=== PATIENT | male | born 1960 | race Caucasian/White ===

== ENCOUNTER 2020-07-08 21:35 | Inpatient (IN) ==
[2020-07-08] MEDS ORDERED: dilTIAZem HCl 5 MG/ML 5 ML VIAL IV ONE (21:45)
[2020-07-08] MEDS ORDERED: dilTIAZem HCl 5 MG/ML 5 ML VIAL IV STA (21:51)
[2020-07-08] MEDS ORDERED: STAT IV Infusion **Titration per Protocol STA (21:51)
[2020-07-08 21:59] LABS: Basophils # (auto) 0.03 K/uL (0-0.2); Basophils % (auto) 0.4 %; Eosinophils # (auto) 0.18 K/uL (0-0.5); Eosinophils % (auto) 2.1 %; Hematocrit (blood only) 52.1 % (42-52); Hemoglobin 18.7 g/dL (14.0-18.0); Immature Granulocytes # (auto) 0.02 K/uL (0.00-0.02); Immature Granulocytes % (auto) 0.2 %; Lymphocytes # (auto) 2.09 K/uL (1.2-3.4); Lymphocytes % (auto) 24.6 %; Mean Corpuscular Hemoglobin 30.6 pg (25-34); Mean Corpuscular Hgb Conc 35.9 g/dL (32-36); Mean Corpuscular Volume 85.3 fL (80-100); Mean Platelet Volume 9.3 fL (7.4-10.4); Monocytes # (auto) 0.86 K/uL (0.11-0.59); Monocytes % (auto) 10.1 %; Neutrophils # (auto) 5.31 K/uL (1.4-6.5); Neutrophils % (auto) 62.6 %; Platelet Count 200 K/uL (130-400); RDW Coefficient of Variation 12.9 % (11.5-14.5); RDW Standard Deviation 39.7 fL (36.4-46.3); Red Blood Count 6.11 M/uL (4.7-6.1); White Blood Count 8.49 K/uL (4.8-10.8)
[2020-07-08] MEDS ORDERED: dilTIAZem HCL 125 MG in DEXTROSE 5% 100 ML IV SCH (22:00)
--- NOTE | 2020-07-08 22:18 | Emergency Department Note ---
Impression & Plan Palpitations, Atrial fibrillation with rapid ventricular response ED Provider Note Provider: Aden Rai MD DATE OF SERVICE: 07/08/2020 CHIEF COMPLAINT: Palpitations HISTORY OF PRESENT ILLNESS: Patient is a 59-year-old gentleman without significant past medical history presenting here today via ambulance from work. Patient states around 8:00 he had onset of some palpitation type symptoms. Denies any chest pain or shortness of breath. Denies any fever or recent illness. Patient states due to possible family exposure negative Covid test 2 weeks ago. Patient denies abdominal pain or nausea. EMS noted he is in rapid atrial fibrillation. Patient states several years ago they thought he may have transiently been in A. fib but were several ulcers without confirmation. Not on current prescription medications. Recently moved here from [facility] and does not currently have a PCP. 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 REVIEW OF SYSTEMS: A total of 10 review of systems was obtained and negative except as stated above in the HPI. PAST MEDICAL HISTORY: As noted above MEDICATIONS: Reviewed home medications SOCIAL HISTORY: Works for [employer], PHYSICAL EXAM: GENERAL: alert and oriented in no acute distress on stretcher Head: normocephalic and atraumatic EYES: No injection, discharge or icterus. NECK: Trachea midline. Supple. LUNGS: Airway patent. No retractions. Breath sounds clear with good air entry bilaterally. HEART: Irregular tachycardic rate and rhythm. No chest wall tenderness ABDOMEN: Soft and non-tender, without guarding or rebound. SKIN: Acyanotic, warm, dry, without rashes EXTREMITIES: Without swelling, tenderness or deformity NEUROLOGICAL: No focal deficits. No aphasia. No facial droop or slurred speech. Ambulatory. EK beats from atrial fibrillation with rapid ventricular response. No acute ST segment elevation or depression noted. QTc within normal limits, QRS within normal limits. CONTINUOUS CARDIAC MONITORING: was ordered and showed a heart rate of 160s to 100s bpm in atrial fibrillation with rapid ventricular response 1 view chest x-ray per my interpretation without evidence of acute pneumonia or pneumothorax. No significant cardiomegaly or pulmonary edema noted. Patient's laboratory studies and imaging reviewed. Differential includes Premature contractions, electrolyte abnormality, cardiac dysrhythmia, thyroid dysfunction, pulmonary embolism, infection, gastrointestinal, as well as other pathologies. IMPRESSION/MEDICAL DECISION MAKING: Patient presents onset of palpitations. He on new onset atrial fibrillation with rapid ventricular response. Not unstable. Hypertensive. Given a 20 mg IV bolus of Cardizem and started on diltiazem drip. Patient had some improvement of his heart rate into the 110s and 120s from 160s. No significant leukocytosis with a mildly elevated hemoglobin 18.7 is noted. Electrolytes and thyroid studies were sent as well. Chest x-ray is significant finding of fluid overload. No severe electrolyte abnormalities or thyroid dysfunction. Troponin is undetectable. EKG shows rapid A. fib without significant ischemic changes. Patient on high-dose Cardizem drip still with suboptimal rate control. Given this discussed with the patient and the hospitalist for further care here at the hospital. Patient wished for me to update his via phone which was done. Again patient resting comfortably in bed without significant complaint or hypotension. Will defer anticoagulation to hospitalist team, patient with a 0 [id number] 2 score. DIAGNOSIS: New onset atrial fibrillation with rapid ventricular response, palpitations DISPOSITION: Hospitalist will evaluate Patient was agreeable with this plan. Critical Care I have personally spent 34 minutes of critical care time in the direct management of this patient. This includes bedside care, interpretation of diagnostic studies, and testing, discussion with consultants, patient, and family members, and other required patient management activities. These 34 minutes is in excess of all separately billable procedures. Past Med/Surg History Social History Smoking Status: Never smoker Preferred Language: Japanese Feels Safe at Home: Yes Allergies Allergies Allergy/AdvReac Type Severity Reaction Status Date / Time cat dander Allergy Unknown POSITIVE Verified 07/08/20 22:17 ALLERGY TEST Penicillins Allergy Unknown HAPPENED Verified 07/08/20 22:17 A CHILD ragweed pollen Allergy Unknown POSITIVE Verified 07/08/20 22:17 ALLERGY TEST Home Meds Home Medications Medication Instructions Recorded Confirmed ascorbic acid (vitamin C) [Vitamin 0 mg PO DAILY 07/08/20 07/08/20 C] cholecalciferol (vitamin D3) 25 mcg PO DAILY 07/08/20 07/08/20 [Vitamin D3] diphenhydramine HCl [ZzzQuil] 25 mg PO HS PRN 07/08/20 07/08/20 multivitamin 1 tab PO DAILY 07/08/20 07/08/20 Results & Data (ED) Vital Signs Vital Signs - 24 hr 07/08/20 21:40 07/08/20 21:48 07/08/20 21:50 Temperature 37.3 C Temperature Source Oral Pulse Rate 165 H 122 H 132 H Respiratory Rate 20 18 18 Respiratory Effort / Characteristics Non-Labored Spontaneous Respiratory Depth Normal Blood Pressure 185/109 H 139/91 122/66 Blood Pressure Mean 134 107 84 Pulse Oximetry 98 98 96 Oxygen Delivery Method Room Air Sepsis New/Unexplained Change in Mental Status N/A Sepsis Action Taken by Nursing No Action Required 07/08/20 22:00 07/08/20 22:05 07/08/20 22:10 Temperature Temperature Source Pulse Rate 107 H 112 H 120 H Respiratory Rate 18 20 20 Respiratory Effort / Characteristics Respiratory Depth Blood Pressure 148/92 H 136/99 150/75 H Blood Pressure Mean 110 111 100 Pulse Oximetry 94 93 94 Oxygen Delivery Method Sepsis New/Unexplained Change in Mental Status Sepsis Action Taken by Nursing 07/08/20 22:16 07/08/20 22:25 07/08/20 22:30 Temperature Temperature Source Pulse Rate 138 H 114 H 133 H Respiratory Rate 20 20 18 Respiratory Effort / Characteristics Respiratory Depth Blood Pressure 161/86 H 132/85 148/113 H Blood Pressure Mean 111 100 124 Pulse Oximetry 95 95 96 Oxygen Delivery Method Sepsis New/Unexplained Change in Mental Status Sepsis Action Taken by Nursing 07/08/20 22:35 07/08/20 22:40 07/08/20 22:45 Temperature Temperature Source Pulse Rate 116 H 125 H 136 H Respiratory Rate 20 20 16 Respiratory Effort / Characteristics Respiratory Depth Blood Pressure 115/90 125/68 125/76 Blood Pressure Mean 98 87 92 Pulse Oximetry 94 96 95 Oxygen Delivery Method Sepsis New/Unexplained Change in Mental Status Sepsis Action Taken by Nursing 07/08/20 22:50 Temperature Temperature Source Pulse Rate 128 H Respiratory Rate 16 Respiratory Effort / Characteristics Respiratory Depth Blood Pressure 144/95 H Blood Pressure Mean 111 Pulse Oximetry 94 Oxygen Delivery Method Sepsis New/Unexplained Change in Mental Status Sepsis Action Taken by Nursing Laboratory Data Result diagrams: 07/08/20 21:31 07/08/20 21:31 Lab Results 07/08/20 07/08/20 07/08/20 Range/Units 21:31 21:31 22:35 WBC 8.49 (4.8-10.8) K/uL RBC 6.11 H (4.7-6.1) M/uL Hgb 18.7 H (14.0-18.0) g/dL Hct 52.1 H (42-52) % MCV 85.3 (80-100) fL MCH 30.6 (25-34) pg MCHC 35.9 (32-36) g/dL RDW Std Deviation 39.7 (36.4-46.3) fL RDW Coeff of Hannah 12.9 (11.5-14.5) % Plt Count 200 (130-400) K/uL MPV 9.3 (7.4-10.4) fL Immature Gran % (Auto) 0.2 % Neut % (Auto) 62.6 % Lymph % (Auto) 24.6 % [place] % (Auto) 10.1 % Eos % (Auto) 2.1 % Baso % (Auto) 0.4 % Neut # (Auto) 5.31 (1.4-6.5) K/uL Lymph # (Auto) 2.09 (1.2-3.4) K/uL [place] # (Auto) 0.86 H (0.11-0.59) K/uL Eos # (Auto) 0.18 (0-0.5) K/uL Baso # (Auto) 0.03 (0-0.2) K/uL Immature Gran # (Auto) 0.02 (0.00-0.02) K/uL Sodium 139 (136-145) mmol/L Potassium 3.9 (3.5-5.1) mmol/L Chloride 105 (98-107) mmol/L Carbon Dioxide 27 (21-32) mmol/L Anion Gap 7.0 (3-11) BUN 17 (7-18) mg/dl Creatinine 1.09 (0.6-1.4) mg/dl Est Cr Clr Drug Dosing 95.4 ml/min Est GFR ( Amer) 85.7 Est GFR (Non-Af Amer) 73.9 BUN/Creatinine Ratio 15.8 (10-20) Glucose 134 H (70-99) mg/dl Calcium 9.8 (8.5-10.1) mg/dl Magnesium 2.3 (1.8-2.4) mg/dl Total Bilirubin 0.9 (0.2-1) mg/dl AST 24 (15-37) U/L ALT 38 (12-78) U/L Alkaline Phosphatase 84 (45-117) U/L Troponin I < 0.015 (0-0.045) ng/ml Total Protein 8.6 H (6.4-8.2) gm/dl Albumin 4.8 (3.4-5.0) gm/dl Globulin 3.8 (2.5-4.0) gm/dl Albumin/Globulin Ratio 1.3 (0.9-2) TSH 2.090 (0.300-4.500) uIu/ml COVID-19 Eval [facility] SARS-CoV-2, RNA, NAAT (NEGATIVE) 07/08/20 Range/Units 22:35 WBC (4.8-10.8) K/uL RBC (4.7-6.1) M/uL Hgb (14.0-18.0) g/dL Hct (42-52) % MCV (80-100) fL MCH (25-34) pg MCHC (32-36) g/dL RDW Std Deviation (36.4-46.3) fL RDW Coeff of Hannah (11.5-14.5) % Plt Count (130-400) K/uL MPV (7.4-10.4) fL Immature Gran % (Auto) % Neut % (Auto) % Lymph % (Auto) % [place] % (Auto) % Eos % (Auto) % Baso % (Auto) % Neut # (Auto) (1.4-6.5) K/uL Lymph # (Auto) (1.2-3.4) K/uL [place] # (Auto) (0.11-0.59) K/uL Eos # (Auto) (0-0.5) K/uL Baso # (Auto) (0-0.2) K/uL Immature Gran # (Auto) (0.00-0.02) K/uL Sodium (136-145) mmol/L Potassium (3.5-5.1) mmol/L Chloride (98-107) mmol/L Carbon Dioxide (21-32) mmol/L Anion Gap (3-11) BUN (7-18) mg/dl Creatinine (0.6-1.4) mg/dl Est Cr Clr Drug Dosing ml/min Est GFR ( Amer) Est GFR (Non-Af Amer) BUN/Creatinine Ratio (10-20) Glucose (70-99) mg/dl Calcium (8.5-10.1) mg/dl Magnesium (1.8-2.4) mg/dl Total Bilirubin (0.2-1) mg/dl AST (15-37) U/L ALT (12-78) U/L Alkaline Phosphatase (45-117) U/L Troponin I (0-0.045) ng/ml Total Protein (6.4-8.2) gm/dl Albumin (3.4-5.0) gm/dl Globulin (2.5-4.0) gm/dl Albumin/Globulin Ratio (0.9-2) TSH (0.300-4.500) uIu/ml COVID-19 Eval Order SARS-CoV-2, RNA, NAAT NEGATIVE (NEGATIVE) Administered Medications Diltiazem HCl 125 mg/ Dextrose 125 mls @ 5 mls/hr IV .Q24H [facility]; Protocol Stop: 08/07/20 21:59 Last Titration: 07/08/20 22:32 Dose: 15 mg/hr, 15 mls/hr Documented by: [id number] Cosigned by: [id number] Admin: 07/08/20 21:59 Dose: 10 mg/hr, 10 mls/hr Documented by: [id number] Cosigned by: [id number] Discontinued Medications Diltiazem HCl (Diltiazem Hcl 5 Mg/Ml 5 Ml Vial) Confirm Administered Dose 25 mg IV .STK-MED ONE Stop: 07/08/20 21:46 Last Increment: 07/08/20 21:46 Dose: 20 mg Documented by: [id number] Cosigned by: [id number] Diltiazem HCl (Diltiazem Hcl 5 Mg/Ml 5 Ml Vial) 20 mg IV NOW STA Stop: 07/08/20 21:52 Last Admin: 07/08/20 21:55 Dose: Not Given Documented by: [id number] Miscellaneous (Stat Iv Infusion Titration Per Protocol) 1 ea N/A NOW STA Stop: 07/08/20 21:52 Last Admin: 07/08/20 22:00 Dose: Not Given Documented by: [id number] Discharge Plan Visit Data Chief Complaint: Tachycardia Stated Complaint: TACHYCARDIA ED Provider: Aden Rai Discharge Problem: Palpitations, Atrial fibrillation with rapid ventricular response Patient Disposition: Being Evaluated by Hospitalist Condition: Good Prescriptions Prescriptions: No Action multivitamin Tablet 1 tab PO DAILY RF: 0 ascorbic acid (vitamin C) [Vitamin C] 500 mg Tablet 0 mg PO DAILY RF: 0 diphenhydramine HCl [ZzzQuil] 25 mg Capsule 25 mg PO HS PRN (Reason: Sleep) RF: 0 cholecalciferol (vitamin D3) [Vitamin D3] 25 mcg (1,000 unit) Capsule 25 mcg PO DAILY RF: 0 Referrals Referrals: PCP,NO [Primary Care Provider] -
[2020-07-08 22:41] LABS: Alanine Aminotransferase 38 U/L (12-78); Albumin Globulin Ratio 1.3 (0.9-2); Albumin Level 4.8 gm/dl (3.4-5.0); Alkaline Phosphatase 84 U/L (45-117); BUN Creatinine Ratio 15.8 (10-20); Bilirubin,Total 0.9 mg/dl (0.2-1); Blood Urea Nitrogen 17 mg/dl (7-18); Calcium 9.8 mg/dl (8.5-10.1); Carbon Dioxide 27 mmol/L (21-32); Chloride 105 mmol/L (98-107); Creatinine Clr Calc Pharmacy 95.4 ml/min; Est GFR (African American) 85.7; Est GFR (Non-African American) 73.9; Globulin 3.8 gm/dl (2.5-4.0); Glucose 134 mg/dl (70-99); Sodium 139 mmol/L (136-145); Total Protein 8.6 gm/dl (6.4-8.2); Troponin I < 0.015 ng/ml (0-0.045)
[2020-07-08 22:57] LABS: Aspartate Aminotransferase 24 U/L (15-37); Magnesium 2.3 mg/dl (1.8-2.4); Potassium 3.9 mmol/L (3.5-5.1)
[2020-07-08] MEDS ORDERED: dilTIAZem HCL 30 MG TAB PO ONE (23:49)
[2020-07-08] MEDS ORDERED: dilTIAZem HCl 5 MG/ML 5 ML VIAL IV PRN (23:51)
--- NOTE | 2020-07-09 00:14 | History & Physical Report ---
Date of Service July 09, 2020 Assessment & Plan (1) Atrial fibrillation with rapid ventricular response: 59-year-old male with no past medical history admitted for new onset A. fib with RVR and noted to be mildly hypertensive and mildly hyperglycemic. AFib with RVR: - In ER received 20 mg IV Cardizem before being placed on Cardizem drip. - Patient's heart rate now 100-120, no complaints of chest pain, shortness of breath, dizziness or headache. - Cardizem 30mg PO now, then d/c cardizem drip. IV Cardizem 10mg q4h prn HR >110. - Heparin gtt started. - Echo AM. - ChadsVasc of 1, might not require anticoagulation long-term. - Tele for cardiac monitoring. - No signs of OR, troponin normal, no ST elevation. HTN: - On admission with mild elevation in blood pressure to 140s/90s. - BP now normotensive after receiving Cardizem. Hyperglycemia: - BSG 134 on admission labs, non-fasting. - A1c with a.m. labs. Polycythemia: - Noted on admission labwork. - Without history of myeloproliferative disorder. - Repeat CBC AM. - Does not appear to be secondary to hemoconcentration. - No findings suggestive of polycythemia vera. CODE STATUS: Full code FENGI: N.p.o. for Echo in a.m, then regular diet DVT PPx: Heparin GTT Dispo: Telemetry for continuous cardiac monitoring, Cardizem as needed HR > 110 (2) HTN (hypertension): (3) Hyperglycemia: History of Present Illness Chief Complaint: Palpitations Primary Care Provider: NO PCP 59-year-old male with no significant past medical history presented via EMS for heart palpitations. Reports that he works for [employer], and has been putting in a lot of extra hours. While working he started to have heart palpitations, without associated chest pain, shortness of breath, lightheadedness. After did not resolve spontaneously EMS was called and patient was transported to ER. No recent illnesses. Mother does have a history of A. fib that was diagnosed in her 70s. In ER patient was found to be tachycardic to 165, EKG showed A. fib with RVR. Lab work showed normal troponin, hemoglobin 18.7, no electrolyte abnormalities, mildly elevated glucose to 134 normal TSH, Covid testing negative. At time of my interview patient is without palpitations, no headache, dizziness, chest pain, shortness of breath, abdominal pain, nausea or vomiting Allergies Allergy/AdvReac Type Severity Reaction Status Date / Time cat dander Allergy Unknown POSITIVE Verified 07/08/20 22:17 ALLERGY TEST Penicillins Allergy Unknown HAPPENED Verified 07/08/20 22:17 A CHILD ragweed pollen Allergy Unknown POSITIVE Verified 07/08/20 22:17 ALLERGY TEST Home Medications Medication Instructions Recorded Confirmed Type ascorbic acid (vitamin C) [Vitamin 0 mg PO DAILY 07/08/20 07/08/20 History C] cholecalciferol (vitamin D3) 25 mcg PO DAILY 07/08/20 07/08/20 History [Vitamin D3] diphenhydramine HCl [ZzzQuil] 25 mg PO HS PRN 07/08/20 07/08/20 History multivitamin 1 tab PO DAILY 07/08/20 07/08/20 History diltiazem HCl 120 mg PO QAM #90 cap 07/09/20 Rx Past Med/Surg History Family History (Updated 07/09/20 @ 00:53 by Janee Boggs DO) Mother Atrial fibrillation Social History Smoking Status: Never smoker Hx Alcohol Use: Yes Hx Substance Use: No Preferred Language: Bahamian Beliefs That Will Affect Care: None Current Living Situation: Family Other Information That Helps Us Care for You: No Feels Safe at Home: Yes Safety Concerns: Feels Safe At This Time Assistive Devices: None Review of Systems Review of Systems: All systems reviewed & are unremarkable except as noted in HPI & below Constitutional: no fever, no chills and no malaise Respiratory: no cough and no dyspnea Cardiovascular: no chest pain, no palpitations and no edema Gastrointestinal: no abdominal pain, no constipation and no diarrhea/loose stools Physical Exam Constitutional: WD/WN, vitals as above Eyes: PERRL, conjunctivae normal, anicteric sclerae ENMT: external ear and nose normal, oropharynx normal Neck: normal visual inspection Respiratory: normal respiratory effort, lungs clear to auscultation Cardiovascular: Rate/Rhythm: + tachycardic and + irregularly irregular Gastrointestinal (Abdomen): normal bowel sounds, soft, nontender, no hepatosplenomegaly Musculoskeletal: no cyanosis or clubbing, extremities motor strength 5/5 Skin: no rashes, warm and dry Neurologic: AAOx3, normal speech. PERRLA, EOMI, no nystagmus. Normal visual acuity bilaterally. Bilateral UE, LE, and face without sensory or motor deficits. DTRs normal. II- XII intact bilaterally. No pronator drift. No tremor. No ataxia. Psychiatric: A+Ox3, euthymic affect Results & Data Results & Data ([facility]) Vital Signs (Past 12 Hours) Vital Signs Temp Pulse Resp BP Pulse Ox 07/08/20 23:50 119 H 17 141/84 H 96 07/08/20 23:35 110 H 18 125/76 97 07/08/20 23:25 117 H 15 110/69 94 07/08/20 23:15 109 H 20 114/65 94 07/08/20 23:05 122 H 20 124/75 95 07/08/20 23:00 117 H 16 129/76 95 07/08/20 22:55 101 H 18 108/81 96 07/08/20 22:50 128 H 16 144/95 H 94 07/08/20 22:45 136 H 16 125/76 95 07/08/20 22:40 125 H 20 125/68 96 07/08/20 22:35 116 H 20 115/90 94 07/08/20 22:30 133 H 18 148/113 H 96 07/08/20 22:25 114 H 20 132/85 95 07/08/20 22:16 138 H 20 161/86 H 95 07/08/20 22:10 120 H 20 150/75 H 94 07/08/20 22:05 112 H 20 136/99 93 07/08/20 22:00 107 H 18 148/92 H 94 07/08/20 21:50 132 H 18 122/66 96 07/08/20 21:48 122 H 18 139/91 98 07/08/20 21:40 37.3 C 165 H 20 185/109 H 98 Code Status & VTE Plan VTE Prophylaxis Plan VTE Prophylaxis will be ordered: Yes Supervising Physician Co-Signing Physician Notes Attending addendum: I have physically seen this patient, have supervised the medical residents activities, and agree with the H&P unless as otherwise noted. Assessment and Plan: Atrial fibrillation with rapid ventricular response/hypertension- The patient will be admitted to telemetry for serial cardiac enzymes, serial EKG's, cardiac rhythm monitoring and a 2-D echocardiogram with Dopplers. New onset Given Cardizem 30 mg p.o. now, then stopping Cardizem drip in 1 hour, and will continue Cardizem 30 mg p.o. every 6 hours. Plan for conversion to Cardizem CD in a.m. Consult cardiology Hyperglycemia- Blood sugar 134 upon admission Check hemoglobin A1c Remaining orders and notations as noted Resident Activity Tracking Resident Involvement: Resident Care Provided Care Provided: Adult [facility] Medicine
[2020-07-09] MEDS ORDERED: ACETAMINOPHEN 325 MG TAB PO PRN (01:13)
[2020-07-09] MEDS ORDERED: HEPARIN SODIUM/DEXTROSE 25,000 UNITS/500 ML BAG IV SCH (01:13)
[2020-07-09] MEDS ORDERED: Heparin IV Standard *NO* Bolus IV SCH (01:13)
[2020-07-09] MEDS ORDERED: ONDANSETRON INJ 2 MG/ML 2 ML VIAL IV PRN (01:13)
[2020-07-09] MEDS ORDERED: POLYETHYLENE (MIRALAX) 17 GM PACK PO PRN (01:13)
[2020-07-09 02:23] LABS: Partial Thromboplastin Time 28.7 Seconds (21.0-31.0); Prothrombin Time 10.3 Seconds (9.0-12.0)
--- NOTE | 2020-07-09 07:05 | XRay Report ---
XR chest 1V portable CLINICAL HISTORY: palpitations COMPARISON STUDY: No previous studies for comparison. FINDINGS: Lung volumes are normal. Lungs are clear. There is no pneumothorax or pleural effusion. Car diac size is normal. Mediastinal contours are normal. There is no evidence for pulmonary edema. IMPRESSION: No acute cardiopulmonary findings. ACT 112: Negative or not required by law. Electronically signed by: Kar Bee M.D. 07/09/2020 7:04 AM
[2020-07-09 08:19] LABS: Basophils # (auto) 0.02 K/uL (0-0.2); Basophils % (auto) 0.3 %; Eosinophils % (auto) 1.5 %; Hematocrit (blood only) 45.6 % (42-52); Hemoglobin 16.4 g/dL (14.0-18.0); Immature Granulocytes # (auto) 0.01 K/uL (0.00-0.02); Immature Granulocytes % (auto) 0.1 %; Lymphocytes # (auto) 1.08 K/uL (1.2-3.4); Lymphocytes % (auto) 15.8 %; Mean Corpuscular Hemoglobin 30.3 pg (25-34); Mean Corpuscular Volume 84.3 fL (80-100); Monocytes # (auto) 0.62 K/uL (0.11-0.59); Monocytes % (auto) 9.1 %; Neutrophils # (auto) 5.01 K/uL (1.4-6.5); Neutrophils % (auto) 73.2 %; Platelet Count 187 K/uL (130-400); RDW Coefficient of Variation 13.1 % (11.5-14.5); RDW Standard Deviation 39.8 fL (36.4-46.3); Red Blood Count 5.41 M/uL (4.7-6.1); White Blood Count 6.84 K/uL (4.8-10.8)
[2020-07-09 08:38] LABS: Partial Thromboplastin Ratio 1.9
[2020-07-09 08:41] LABS: Partial Thromboplastin Time 53.8 Seconds (21.0-31.0)
[2020-07-09 08:45] LABS: BUN Creatinine Ratio 19.9 (10-20); Calcium 9.2 mg/dl (8.5-10.1); Creatinine Clr Calc Pharmacy 103.7 ml/min; Est GFR (African American) 97.4; Est GFR (Non-African American) 84.1; Potassium 3.9 mmol/L (3.5-5.1)
[2020-07-09] MEDS ORDERED: MULTIVITAMIN TAB PO SCH (09:00)
[2020-07-09 09:10] LABS: Chol HDL Ratio 4; Cholesterol 161 mg/dl (0-200); HDL Cholesterol 44 mg/dl; LDL Cholesterol Calculated 95 mg/dl; Triglycerides 109 mg/dl (0-150); VLDL Cholesterol 22 mg/dl
[2020-07-09 09:48] LABS: Estimated Average Glucose 103 mg/dl; Hemoglobin A1C 5.2 % (4.5-5.6)
--- NOTE | 2020-07-09 11:07 | XCELERA ---
[id number]
--- NOTE | 2020-07-09 11:19 | Discharge Summary ---
Date of Service July 09, 2020 Admission HPI Per Admitting Provider 59-year-old male with no significant past medical history presented via EMS for heart palpitations. Reports that he works for [employer], and has been putting in a lot of extra hours. While working he started to have heart palpitations, without associated chest pain, shortness of breath, lightheadedness. After did not resolve spontaneously EMS was called and patient was transported to ER. No recent illnesses. Mother does have a history of A. fib that was diagnosed in her 70s. In ER patient was found to be tachycardic to 165, EKG showed A. fib with RVR. Lab work showed normal troponin, hemoglobin 18.7, no electrolyte abnormalities, mildly elevated glucose to 134 normal TSH, Covid testing negative. At time of my interview patient is without palpitations, no headache, dizziness, chest pain, shortness of breath, abdominal pain, nausea or vomiting Admission Exam Per Admitting Provider Constitutional: WD/WN, vitals as above Eyes: PERRL, conjunctivae normal, anicteric sclerae ENMT: external ear and nose normal, oropharynx normal Neck: normal visual inspection Respiratory: normal respiratory effort, lungs clear to auscultation Cardiovascular: Rate/Rhythm: + tachycardic and + irregularly irregular Gastrointestinal (Abdomen): normal bowel sounds, soft, nontender, no hepatosplenomegaly Musculoskeletal: no cyanosis or clubbing, extremities motor strength 5/5 Skin: no rashes, warm and dry Neurologic: AAOx3, normal speech. PERRLA, EOMI, no nystagmus. Normal visual acuity bilaterally. Bilateral UE, LE, and face without sensory or motor deficits. DTRs normal. II- XII intact bilaterally. No pronator drift. No tremor. No ataxia. Psychiatric: A+Ox3, euthymic affect Principal Diagnosis Atrial Fibrillation with Rapid Ventricular Response Discharge Exam General: A&Ox3. NAD. Cooperative. HEENT: Atraumatic, normocephalic. Pulm: CTAB A&P. -wheezes, -rales, -rhonchi. Symmetrical chest rise. No increase work of breathing. No respiratory distress. Cardiac: RRR, -mrg. Radial pulses intact and symmetrical. Abdominal: soft, non-tender, non-distended, BS x 4 Discharge Data Allergies Allergy/AdvReac Type Severity Reaction Status Date / Time cat dander Allergy Unknown POSITIVE Verified 07/08/20 22:17 ALLERGY TEST Penicillins Allergy Unknown HAPPENED Verified 07/08/20 22:17 A CHILD ragweed pollen Allergy Unknown POSITIVE Verified 07/08/20 22:17 ALLERGY TEST Consultations 07/08/20 23:33 ED Decision to Admit Stat Hospital Course (1) Atrial fibrillation with rapid ventricular response: Otoniel Arvizu is a 59yo male with no past medical history who was admitted to [facility] on 07/08/2020 for new onset a-fib with RVR. A-Fib with RVR - h/o "palpitations" every couple years but no recorded h/o a-fib or hospitalizations - In ER received Diltiazem 20mg IV x1, temporarily on Diltiazem gtt, Heparin gtt started as well - rates controlled to less than 100bpm, Diltiazem gtt d/c'd on 07/09, converted to NSR on 07/09/2020 - started Diltiazem ER 120mg PO daily on discharge - ChadsVasc of 1 - Heparin gtt stopped - consider adding DOAC on f/u HTN - On admission with mild elevation in blood pressure to 140s/90s. - BP normotensive after receiving Diltiazem - continue on d/c as above Hyperglycemia - BSG 134 on admission labs, A1c 5.2 - no further eval/management Erythrocytosis - Hgb 18.7 on admission, without history of myeloproliferative disorder, reports h/o snoring - suspect 2/2 untreated ROVERTO - sleep study as outpatient (2) HTN (hypertension): (3) Hyperglycemia: Total Time Total Time Spent Total Time Spent (In Minutes): >30 Discharge Plan Discharge Items Patient Disposition: Home - Self-Care Reason For Visit: AFIB WITH RVR Discharge Diagnosis: Atrial Fibrillation with Rapid Ventricular Response Condition on Discharge: Good Activity: Per Instructions section Non-emergency contact: Primary Care Provider Call non-emergency contact if: you have any medication questions and your symptoms worsen Follow-up/Referrals: PCP,NO [Primary Care Provider] - Diet: Regular Addtl Attending Provider Instructions: You were admitted to [facility] on 07/08/2020 for a fast, irregular heart rhythm called atrial fibrillation with rapid ventricular response. You were started on a medication called Diltiazem to help lower your heart rate; you did well on this medication and your heart rate decreased to below 100, which is good. You were also started on a blood thinner called Heparin, which is often used to prevent clots that can sometimes occur in patients with atrial fibrillation. This medication was stopped during your h ospitalization, as your annual risk for clot/stroke is very low (~1-2% per year) based on your low risk factors (you do not have diabetes, heart disease or previous heart attacks). However, given that the annual risk is still present, I would like to discuss starting a blood thinner with you at your follow-up visit with me in the office. Additionally, you will continue on the rate-control medication (Diltiazem) after discharge - you should take this medication once per day. Lastly, given your history of snoring as well as elevated hemoglobin (blood marker), it would be a good idea to set you up for a sleep study for possible sleep apnea - I will get this set up for you at our office visit. You are scheduled to see me at the [facility] on 07/22/2020 at 8:30 am. It was a pleasure to help provide your care while you were hospitalized. I hope you continue to feel well! Pending Studies at Discharge: No Stand-Alone Forms: My [facility], Work/School Release (Inpt), Smoking Cessation Medications and DC Order Prescriptions: New diltiazem HCl 120 mg capsule,extended release 24 hr 120 mg PO QAM Qty: 90 RF: 3 Continued multivitamin Tablet 1 tab PO DAILY RF: 0 ascorbic acid (vitamin C) [Vitamin C] 500 mg Tablet 0 mg PO DAILY RF: 0 diphenhydramine HCl [ZzzQuil] 25 mg Capsule 25 mg PO HS PRN (Reason: Sleep) RF: 0 cholecalciferol (vitamin D3) [Vitamin D3] 25 mcg (1,000 unit) Capsule 25 mcg PO DAILY RF: 0 Discharge Orders: Discharge Order (Routine); Ordered 07/09/20 Ordered By: Rick West Admission Data Admit Date/Time: 07/09/20 00:07 Attending Provider: Tavon Schroeder Admit Provider: Janee Boggs Primary Care Provider: PCP,NO Other Providers: Mihai Machado Other Interventions: Discharge Summary Assessment (RN) Last Done: 07/09/20 12:39 Supervising Physician Co-Signing Physician Notes I personally examined the patient and verified all [place] points of history and exam, discussed case, and agree with decision making with Dr West feeling better palpitations resolved discussed afib, rate control, stroke prevention. pt expressed good understanding vitals noted nad heent nc at mmm breathing unlabored. rate controlled new onset afib/RVR - now sinus. CHADSVasc low, discussed risks/benefits of anticoagulation, he will consider and d/w pcp further. dilt for rate control. outpt sleep study. stable for home, otherwise as above Resident Activity Tracking Resident Involvement: Resident Care Provided Care Provided: Adult Hospital Medicine
--- NOTE | 2020-07-09 14:26 | Electrocardiogram Report ---
Test Reason : Blood Pressure : / mmHG Vent. Rate : 147 BPM Atrial Rate : 170 BPM P-R Int : 000 ms QRS Dur : 100 ms QT Int : 282 ms P-R-T Axes : 000 019 008 degrees QTc Int : 441 ms Atrial fibrillation with rapid ventricular response Nonspecific ST abnormality Abnormal ECG No previous ECGs available Confirmed by Carmine Covington ([id number]) on 07/09/2020 2:26:04 PM Referred By: REFERRED SELF Confirmed By:Carmine Covington
--- NOTE | 2020-07-10 21:57 | Billing Data ---
Date of Service July 10, 2020 Coding Level of Care Code 57530 OBS Care - Level 3
== END 2020-07-09 13:15 | disposition home or self-care (01) | DRG 310 ==
LOC: ED 21:35 → 2S 07-09 00:07 → SUATTDRO 07-09 00:07 → 2S 07-09 00:49

== ENCOUNTER 2021-04-14 16:37 | Observation (INO) ==
[2021-04-14] MEDS ORDERED: METOPROLOL TARTRATE 1 MG/ML VIAL IV STA ×3 (16:59→17:31)
[2021-04-14] MEDS ORDERED: SODIUM CHLORIDE 0.9% 500 ML IV SCH (17:00)
[2021-04-14 17:05] LABS: Basophils # (auto) 0.02 K/uL (0-0.2); Basophils % (auto) 0.2 %; Eosinophils # (auto) 0.13 K/uL (0-0.5); Eosinophils % (auto) 1.3 %; Hematocrit (blood only) 48.3 % (42-52); Hemoglobin 17.6 g/dL (14.0-18.0); Immature Granulocytes # (auto) 0.03 K/uL (0.00-0.02); Immature Granulocytes % (auto) 0.3 %; Lymphocytes # (auto) 2.31 K/uL (1.2-3.4); Lymphocytes % (auto) 22.4 %; Mean Corpuscular Hgb Conc 36.4 g/dL (32-36); Mean Corpuscular Volume 82.4 fL (80-100); Monocytes # (auto) 1.04 K/uL (0.11-0.59); Monocytes % (auto) 10.1 %; Neutrophils # (auto) 6.79 K/uL (1.4-6.5); Neutrophils % (auto) 65.7 %; Platelet Count 231 K/uL (130-400); RDW Coefficient of Variation 12.9 % (11.5-14.5); RDW Standard Deviation 38.3 fL (36.4-46.3); Red Blood Count 5.86 M/uL (4.7-6.1); White Blood Count 10.32 K/uL (4.8-10.8)
--- NOTE | 2021-04-14 17:14 | Emergency Department Note ---
Impression & Plan Atrial fibrillation with rapid ventricular response, Palpitations, Near syncope ED Provider Note NAME: NATHEN MONTERO AGE: 60 SEX: M : 1960 ARRIVES VIA: Walk-In INFORMANT: Patient, ED PROVIDER(S): Carmine Hernandez DO CHIEF COMPLAINT: Palpitations HPI: The patient is a 60-year-old male who presented to the emergency department for an evaluation of palpitations. The patient has a history of atrial fibrillation. The patient states he was not compliant with his rate control medication today but normally he is very compliant with his medications. He states he was eating dinner with family when he started noticing palpitations. He has been having near syncope upon standing. When he presented to triage apparently he looked as though he was about to pass out. He was brought directly back to room 83. He was found to have an irregular tachycardic rhythm on the heart monitor. The patient self states he feels somewhat better at rest but states he does get significant symptoms upon exerting himself or standing up. He denies having any recent illnesses such as fever nausea or vomiting. Has had no recent diarrhea. He states he for started having problems with atrial fibrillation at the beginning of the year and last spring. The patient currently does not take an oral anticoagulant. ROS: See above HPI for pertinent positives & negatives. A total of 10 systems reviewed and were otherwise negative. PAST MEDICAL HISTORY: See Below PAST SURGICAL HISTORY: See Below FAMILY HISTORY: See Below SOCIAL HISTORY: See Below HOME MEDICATIONS: See Below ALLERGIES: See Below VITALS: See Below PHYSICAL EXAMINATION: GENERAL: Patient is awake alert in no acute distress patient is resting comfortably and showing no signs of anxiety EYES: The conjunctivae are clear. The pupils are round and reactive. EARS, NOSE, MOUTH AND THROAT: The nose is without any evidence of any deformity. NECK: The neck is nontender and supple. RESPIRATORY: Normal respiratory effort is noted there is no evidence of wheezing rhonchi or rales CARDIOVASCULAR: Tachycardic and irregular heart sounds were noted to auscultation. There is no definite murmur. GASTROINTESTINAL: The abdomen is soft. Abdomen is nontender. PELVIS: The Pelvis is stable. No tenderness to palpation is noted. BACK: No midline tenderness or or step-off noted range of motion in flexion extension as well as rotation no signs of muscle spasm noted MUSCULOSKELETAL/EXTREMITIES: There is no evidence of gross deformity full range of motion is noted in the hips and shoulders. SKIN: There is no obvious evidence of any rash. There are no petechiae, pallor or cyanosis noted. NEUROLOGIC: Patient is awake alert and oriented x3. MEDICAL DECISION MAKING: The patient is a 60-year-old male who presented to the emergency department for an evaluation of paroxysmal atrial fibrillation. The patient was having palpitations. He does have a history of atrial fibrillation and presented to the emergency department because he knew he was in an irregular heartbeat. The patient states that he was compliant with his usual medications up until this morning and he feels like he missed his dose this morning. Initially he stated he was on a beta-jaziel. He was found to be in atrial fibrillation with a variable rate which was going between 120 and 160 bpm. The patient was treated with IV fluids and initially IV Lopressor. He was then treated with IV Cardizem. He was reevaluated multiple times. He was feeling much better on subsequent reevaluation. I discussed the patient's laboratory and radiographic studies with him. Currently he is not on a blood thinner and likely this is secondary to the patient's lack of other past medical history and overall health. I discussed the patient's condition with the on-call [facility] boilers and pressure vessels inspector. At this time given the patient's symptoms of near syncope along with his palpitations it is felt he may benefit from inpatient monitoring to ensure he does return to sinus rhythm. The [facility] hospitalist group was notified about the patient. They will evaluate the patient in the emergency department. Triage Nursing notes reviewed. Prior medical records reviewed Vital Signs: reviewed and remarkable for tachycardia. Differential diagnosis: Premature contractions, electrolyte abnormality, cardiac dysrhythmia, thyroid dysfunction, pulmonary embolism, infection, gastrointestinal, as well as other pathologies. ER treatment provided: See below Diagnostics interpreted by me: ECG: EKG was obtained in the emergency department. My interpretation is atrial fibrillation at 169 bpm. There were some PVCs noted. Diffuse ST segment abnormalities were also appreciated. This was compared to a tracing from July 082020. The rate is increased however no other significant changes were noted. Cardiac Monitoring: An order was placed for continuous cardiac monitoring. The monitor shows a rate of 101 bpm with atrial fibrillation. Laboratory studies: As stated above and show below. Imaging studies: See below Consultation(s): I discussed this case with Dr. De La Torre who is on-call for [facility] cardiology. I discussed this case with Dr. Machado who is on-call for the [facility] hospitalist group. He will evaluate the patient in the emergency department for further management and disposition. ED COURSE: Procedures: none Critical Care: I have personally spent greater than 35 minutes of critical care time in the direct management of this patient. This includes bedside care, interpretation of diagnostic studies, and testing, discussion with consultants, patient, and family members, and other required patient management activities. This 35 minutes is in excess of all separately billable procedures. Past Med/Surg History Medical History Atrial fibrillation with rapid ventricular response HTN (hypertension) Palpitations Family History Mother Atrial fibrillation Social History Smoking Status: Never smoker Hx Alcohol Use: Yes Hx Substance Use: No Preferred Language: Greek Beliefs That Will Affect Care: None Current Living Situation: Family Feels Safe at Home: Yes Assistive Devices: None Allergies Allergies Allergy/AdvReac Type Severity Reaction Status Date / Time cat dander Allergy Unknown POSITIVE Verified 04/14/21 17:13 ALLERGY TEST Penicillins Allergy Unknown HAPPENED Verified 04/14/21 17:13 A CHILD ragweed pollen Allergy Unknown POSITIVE Verified 04/14/21 17:13 ALLERGY TEST Home Meds Home Medications Medication Instructions Recorded Confirmed ascorbic acid (vitamin C) 500 mg 0 mg PO DAILY 07/08/20 04/14/21 tablet (Vitamin C) cholecalciferol (vitamin D3) 25 25 mcg PO DAILY 07/08/20 04/14/21 mcg (1,000 unit) capsule (Vitamin D3) multivitamin 1 tab PO DAILY 07/08/20 04/14/21 Previous Rx's Medication Instructions Recorded diltiazem HCl 120 mg capsule,24 120 mg PO QAM #90 cap 07/09/20 hr,extended release Results & Data (ED) Vital Signs Vital Signs - 24 hr 04/14/21 16:38 04/14/21 16:44 04/14/21 16:50 Temperature 36.9 C Temperature Source Temporal Artery Scan Pulse Rate 112 H 102 H 123 H Pulse Rate [Left Finger] Pulse Rate from SpO2 Sensor Pulse Rhythm [Left Finger] Pulse Strength [Left Finger] Respiratory Rate 19 19 25 H Respiratory Effort / Characteristics Non-Labored Respiratory Depth Normal Respiratory Pattern Blood Pressure Blood Pressure [Right Arm] Blood Pressure Mean [Right Arm] Blood Pressure Position [Right Arm] Pulse Oximetry 96 Oxygen Delivery Method Room Air Sepsis Recent Fever Within 48 Hours No Sepsis New/Unexplained Change in Mental Status N/A Sepsis Action Taken by Nursing No Action Required 04/14/21 16:51 04/14/21 17:00 04/14/21 17:06 Temperature Temperature Source Pulse Rate 110 H 108 H Pulse Rate [Left Finger] Pulse Rate from SpO2 Sensor Pulse Rhythm [Left Finger] Pulse Strength [Left Finger] Respiratory Rate 17 Respiratory Effort / Characteristics Respiratory Depth Respiratory Pattern Blood Pressure 179/91 H Blood Pressure [Right Arm] Blood Pressure Mean [Right Arm] Blood Pressure Position [Right Arm] Pulse Oximetry Oxygen Delivery Method Room Air Sepsis Recent Fever Within 48 Hours Sepsis New/Unexplained Change in Mental Status Sepsis Action Taken by Nursing 04/14/21 17:10 04/14/21 17:17 04/14/21 17:20 Temperature Temperature Source Pulse Rate 94 H 142 H 140 H Pulse Rate [Left Finger] Pulse Rate from SpO2 Sensor Pulse Rhythm [Left Finger] Pulse Strength [Left Finger] Respiratory Rate 21 21 Respiratory Effort / Characteristics Respiratory Depth Respiratory Pattern Blood Pressure 130/85 Blood Pressure [Right Arm] Blood Pressure Mean [Right Arm] Blood Pressure Position [Right Arm] Pulse Oximetry Oxygen Delivery Method Room Air Sepsis Recent Fever Within 48 Hours Sepsis New/Unexplained Change in Mental Status Sepsis Action Taken by Nursing 04/14/21 17:30 04/14/21 17:39 04/14/21 17:40 Temperature Temperature Source Pulse Rate 140 H 135 H 127 H Pulse Rate [Left Finger] Pulse Rate from SpO2 Sensor Pulse Rhythm [Left Finger] Pulse Strength [Left Finger] Respiratory Rate 25 H 26 H Respiratory Effort / Characteristics Respiratory Depth Respiratory Pattern Blood Pressure 142/96 H Blood Pressure [Right Arm] Blood Pressure Mean [Right Arm] Blood Pressure Position [Right Arm] Pulse Oximetry Oxygen Delivery Method Room Air Room Air Sepsis Recent Fever Within 48 Hours Sepsis New/Unexplained Change in Mental Status Sepsis Action Taken by Nursing 04/14/21 17:50 04/14/21 18:00 04/14/21 18:10 Temperature Temperature Source Pulse Rate 129 H 138 H 110 H Pulse Rate [Left Finger] Pulse Rate from SpO2 Sensor 120 H 115 H 115 H Pulse Rhythm [Left Finger] Pulse Strength [Left Finger] Respiratory Rate 23 17 14 Respiratory Effort / Characteristics Respiratory Depth Respiratory Pattern Blood Pressure Blood Pressure [Right Arm] Blood Pressure Mean [Right Arm] Blood Pressure Position [Right Arm] Pulse Oximetry 93 97 94 Oxygen Delivery Method Room Air Room Air Room Air Sepsis Recent Fever Within 48 Hours Sepsis New/Unexplained Change in Mental Status Sepsis Action Taken by Nursing 04/14/21 18:20 04/14/21 18:25 04/14/21 18:30 Temperature Temperature Source Pulse Rate 105 H 116 H Pulse Rate [Left Finger] 108 H Pulse Rate from SpO2 Sensor 81 104 H Pulse Rhythm [Left Finger] Irregular Pulse Strength [Left Finger] Absent Respiratory Rate 22 20 22 Respiratory Effort / Characteristics Non-Labored Spontaneous Respiratory Depth Normal Respiratory Pattern Regular Blood Pressure Blood Pressure [Right Arm] 115/70 Blood Pressure Mean [Right Arm] 85 Blood Pressure Position [Right Arm] Sitting Pulse Oximetry 92 96 96 Oxygen Delivery Method Room Air Room Air Room Air Sepsis Recent Fever Within 48 Hours Sepsis New/Unexplained Change in Mental Status Sepsis Action Taken by Nursing 04/14/21 18:40 Temperature Temperature Source Pulse Rate 101 H Pulse Rate [Left Finger] Pulse Rate from SpO2 Sensor 92 H Pulse Rhythm [Left Finger] Pulse Strength [Left Finger] Respiratory Rate 16 Respiratory Effort / Characteristics Respiratory Depth Respiratory Pattern Blood Pressure Blood Pressure [Right Arm] Blood Pressure Mean [Right Arm] Blood Pressure Position [Right Arm] Pulse Oximetry 93 Oxygen Delivery Method Room Air Sepsis Recent Fever Within 48 Hours Sepsis New/Unexplained Change in Mental Status Sepsis Action Taken by Jail Medications Current Medication List: was personally reviewed by me Laboratory Data Attestation: I reviewed the patient's lab results. Result diagrams: 04/14/21 16:49 04/14/21 18:34 Lab Results 04/14/21 04/14/21 04/14/21 Range/Units 16:49 16:49 16:49 WBC 10.32 (4.8-10.8) K/uL RBC 5.86 (4.7-6.1) M/uL Hgb 17.6 (14.0-18.0) g/dL Hct 48.3 (42-52) % MCV 82.4 (80-100) fL MCH 30.0 (25-34) pg MCHC 36.4 H (32-36) g/dL RDW Std Deviation 38.3 (36.4-46.3) fL RDW Coeff of Hannah 12.9 (11.5-14.5) % Plt Count 231 (130-400) K/uL MPV 9.0 (7.4-10.4) fL Immature Gran % (Auto) 0.3 % Neut % (Auto) 65.7 % Lymph % (Auto) 22.4 % [place] % (Auto) 10.1 % Eos % (Auto) 1.3 % Baso % (Auto) 0.2 % Neut # (Auto) 6.79 H (1.4-6.5) K/uL Lymph # (Auto) 2.31 (1.2-3.4) K/uL [place] # (Auto) 1.04 H (0.11-0.59) K/uL Eos # (Auto) 0.13 (0-0.5) K/uL Baso # (Auto) 0.02 (0-0.2) K/uL Immature Gran # (Auto) 0.03 H (0.00-0.02) K/uL PT 9.6 (9.0-12.0) Seconds INR 0.9 (0.9-1.1) APTT 26.4 (21.0-31.0) Seconds PTT Ratio 1.0 Sodium 138 (136-145) mmol/L Potassium (3.5-5.1) mmol/L Chloride 104 (98-107) mmol/L Carbon Dioxide 25 (21-32) mmol/L Anion Gap 9.0 (3-11) BUN 21 H (7-18) mg/dl Creatinine 1.16 (0.6-1.4) mg/dl Est Cr Clr Drug Dosing 87.7 ml/min Est GFR ( Amer) 78.9 ml/min Est GFR (Non-Af Amer) 68.1 ml/min BUN/Creatinine Ratio 17.8 (10-20) Glucose 131 H (70-99) mg/dl Calcium 9.1 (8.5-10.1) mg/dl Magnesium (1.8-2.4) mg/dl Total Bilirubin 0.8 (0.2-1) mg/dl AST (15-37) U/L ALT 35 (12-78) U/L Alkaline Phosphatase 81 (45-117) U/L Total Creatine Kinase (39-308) U/L Troponin I < 0.015 (0-0.045) ng/ml Total Protein 8.0 (6.4-8.2) gm/dl Albumin 4.4 (3.4-5.0) gm/dl Globulin 3.6 (2.5-4.0) gm/dl Albumin/Globulin Ratio 1.2 (0.9-2) TSH 1.440 (0.300-4.500) uIu/ml Urine Color Urine Appearance (Clear) Urine pH (4.5-7.5) Ur Specific [place] (1.000-1.030) Urine Protein (Negative) Urine Glucose (UA) (Negative) Urine Ketones (Negative) Urine Blood (Negative) Urine Nitrite (Negative) Urine Bilirubin (Negative) Urine Urobilinogen (Negative) Ur Leukocyte Esterase (Negative) COVID-19 Eval Order SARS-CoV-2 (PCR) (Negative) 04/14/21 04/14/21 04/14/21 Range/Units 16:55 16:55 17:32 WBC (4.8-10.8) K/uL RBC (4.7-6.1) M/uL Hgb (14.0-18.0) g/dL Hct (42-52) % MCV (80-100) fL MCH (25-34) pg MCHC (32-36) g/dL RDW Std Deviation (36.4-46.3) fL RDW Coeff of Hannah (11.5-14.5) % Plt Count (130-400) K/uL MPV (7.4-10.4) fL Immature Gran % (Auto) % Neut % (Auto) % Lymph % (Auto) % [place] % (Auto) % Eos % (Auto) % Baso % (Auto) % Neut # (Auto) (1.4-6.5) K/uL Lymph # (Auto) (1.2-3.4) K/uL [place] # (Auto) (0.11-0.59) K/uL Eos # (Auto) (0-0.5) K/uL Baso # (Auto) (0-0.2) K/uL Immature Gran # (Auto) (0.00-0.02) K/uL PT (9.0-12.0) Seconds INR (0.9-1.1) APTT (21.0-31.0) Seconds PTT Ratio Sodium (136-145) mmol/L Potassium Cancelled (3.5-5.1) mmol/L Chloride (98-107) mmol/L Carbon Dioxide (21-32) mmol/L Anion Gap (3-11) BUN (7-18) mg/dl Creatinine (0.6-1.4) mg/dl Est Cr Clr Drug Dosing ml/min Est GFR ( Amer) ml/min Est GFR (Non-Af Amer) ml/min BUN/Creatinine Ratio (10-20) Glucose (70-99) mg/dl Calcium (8.5-10.1) mg/dl Magnesium Cancelled (1.8-2.4) mg/dl Total Bilirubin (0.2-1) mg/dl AST Cancelled (15-37) U/L ALT (12-78) U/L Alkaline Phosphatase (45-117) U/L Total Creatine Kinase Cancelled (39-308) U/L Troponin I (0-0.045) ng/ml Total Protein (6.4-8.2) gm/dl Albumin (3.4-5.0) gm/dl Globulin (2.5-4.0) gm/dl Albumin/Globulin Ratio (0.9-2) TSH (0.300-4.500) uIu/ml Urine Color Urine Appearance (Clear) Urine pH (4.5-7.5) Ur Specific [place] (1.000-1.030) Urine Protein (Negative) Urine Glucose (UA) (Negative) Urine Ketones (Negative) Urine Blood (Negative) Urine Nitrite (Negative) Urine Bilirubin (Negative) Urine Urobilinogen (Negative) Ur Leukocyte Esterase (Negative) COVID-19 Eval Order Covid19 at [facility] SARS-CoV-2 (PCR) NEGATIVE (Negative) 04/14/21 04/14/21 Range/Units 17:48 18:34 WBC (4.8-10.8) K/uL RBC (4.7-6.1) M/uL Hgb (14.0-18.0) g/dL Hct (42-52) % MCV (80-100) fL MCH (25-34) pg MCHC (32-36) g/dL RDW Std Deviation (36.4-46.3) fL RDW Coeff of Hannah (11.5-14.5) % Plt Count (130-400) K/uL MPV (7.4-10.4) fL Immature Gran % (Auto) % Neut % (Auto) % Lymph % (Auto) % [place] % (Auto) % Eos % (Auto) % Baso % (Auto) % Neut # (Auto) (1.4-6.5) K/uL Lymph # (Auto) (1.2-3.4) K/uL [place] # (Auto) (0.11-0.59) K/uL Eos # (Auto) (0-0.5) K/uL Baso # (Auto) (0-0.2) K/uL Immature Gran # (Auto) (0.00-0.02) K/uL PT (9.0-12.0) Seconds INR (0.9-1.1) APTT (21.0-31.0) Seconds PTT Ratio Sodium (136-145) mmol/L Potassium 3.4 L (3.5-5.1) mmol/L Chloride (98-107) mmol/L Carbon Dioxide (21-32) mmol/L Anion Gap (3-11) BUN (7-18) mg/dl Creatinine (0.6-1.4) mg/dl Est Cr Clr Drug Dosing ml/min Est GFR ( Amer) ml/min Est GFR (Non-Af Amer) ml/min BUN/Creatinine Ratio (10-20) Glucose (70-99) mg/dl Calcium (8.5-10.1) mg/dl Magnesium 2.1 (1.8-2.4) mg/dl Total Bilirubin (0.2-1) mg/dl AST 20 (15-37) U/L ALT (12-78) U/L Alkaline Phosphatase (45-117) U/L Total Creatine Kinase 121 (39-308) U/L Troponin I (0-0.045) ng/ml Total Protein (6.4-8.2) gm/dl Albumin (3.4-5.0) gm/dl Globulin (2.5-4.0) gm/dl Albumin/Globulin Ratio (0.9-2) TSH (0.300-4.500) uIu/ml Urine Color Yellow Urine Appearance Clear (Clear) Urine pH 6.0 (4.5-7.5) Ur Specific [place] 1.009 (1.000-1.030) Urine Protein Negative (Negative) Urine Glucose (UA) Negative (Negative) Urine Ketones 1+ H (Negative) Urine Blood Negative (Negative) Urine Nitrite Negative (Negative) Urine Bilirubin Negative (Negative) Urine Urobilinogen Negative (Negative) Ur Leukocyte Esterase Negative (Negative) COVID-19 Eval Order SARS-CoV-2 (PCR) (Negative) Administered Medications Discontinued Medications Diltiazem HCl (Diltiazem Hcl 5 Mg/Ml 5 Ml Vial) 20 mg IV NOW STA Stop: 04/14/21 17:58 Last Admin: 04/14/21 18:05 Dose: 20 mg Documented by: [id number] Cosigned by: [id number] Sodium Chloride (Nss) 500 mls @ 999 mls/hr IV .Q31M BILL Stop: 04/14/21 17:30 Last Infusion: 04/14/21 17:36 Dose: 0 mls/hr Documented by: [id number] Admin: 04/14/21 16:59 Dose: 999 mls/hr Documented by: [id number] Sodium Chloride (Nss) 500 mls @ 999 mls/hr IV .Q31M ONE Stop: 04/14/21 18:06 Last Infusion: 04/14/21 18:18 Dose: 0 mls/hr Documented by: [id number] Admin: 04/14/21 17:39 Dose: 999 mls/hr Documented by: [id number] Metoprolol Tartrate (Metoprolol Tartrate 1 Mg/Ml Vial) 5 mg IV NOW STA Stop: 04/14/21 17:00 Last Admin: 04/14/21 17:06 Dose: 5 mg Documented by: [id number] Metoprolol Tartrate (Metoprolol Tartrate 1 Mg/Ml Vial) 5 mg IV NOW STA Stop: 04/14/21 17:11 Last Admin: 04/14/21 17:17 Dose: 5 mg Documented by: [id number] Metoprolol Tartrate (Metoprolol Tartrate 1 Mg/Ml Vial) 5 mg IV NOW STA Stop: 04/14/21 17:32 Last Admin: 04/14/21 17:39 Dose: 5 mg Documented by: [id number] Imaging Data Radiologist's Impression: Chest X-Ray 04/14/21 16:46 XR chest 1V portable CLINICAL HISTORY: weakness TECHNIQUE: Single frontal radiograph of the chest was obtained. Comparison: Comparison is made to chest one view 07/08/2020 FINDINGS: No lines and tubes are seen. The cardiomediastinal silhouette is normal. The lungs are clear. No evidence of pleural effusion or pneumothorax. IMPRESSION: No acute chest disease. ACT 112: Negative or not required by law. Electronically signed by: Maurice Nunez M.D. 04/14/2021 5:33 PM Discharge Plan Visit Data Chief Complaint: Chest Pain Stated Complaint: CHEST PAINS, ABNORMAL HEART BEAT, NUMB' ED Provider: Carmine Hernandez ED Midlevel Provider: Albert Hooper Discharge Problem: Atrial fibrillation with rapid ventricular response, Palpitations, Near syncope Patient Disposition: Being Evaluated by Hospitalist Forms Stand Alone Forms: [facility] [employer] Prescriptions Prescriptions: No Action multivitamin Tablet 1 tab PO DAILY RF: 0 ascorbic acid (vitamin C) [Vitamin C] 500 mg Tablet 0 mg PO DAILY RF: 0 cholecalciferol (vitamin D3) [Vitamin D3] 25 mcg (1,000 unit) Capsule 25 mcg PO DAILY RF: 0 diltiazem HCl 120 mg capsule,extended release 24 hr 120 mg PO QAM Qty: 90 RF: 3 Referrals Referrals: PCP,NO [Primary Care Provider] -
[2021-04-14 17:15] LABS: INR 0.9 (0.9-1.1); Partial Thromboplastin Time 26.4 Seconds (21.0-31.0); Prothrombin Time 9.6 Seconds (9.0-12.0)
[2021-04-14 17:22] LABS: Alanine Aminotransferase 35 U/L (12-78); Albumin Level 4.4 gm/dl (3.4-5.0); BUN Creatinine Ratio 17.8 (10-20); Blood Urea Nitrogen 21 mg/dl (7-18); Calcium 9.1 mg/dl (8.5-10.1); Carbon Dioxide 25 mmol/L (21-32); Chloride 104 mmol/L (98-107); Creatinine Clr Calc Pharmacy 87.7 ml/min; Est GFR (African American) 78.9 ml/min; Est GFR (Non-African American) 68.1 ml/min; Glucose 131 mg/dl (70-99); Sodium 138 mmol/L (136-145)
--- NOTE | 2021-04-14 17:34 | XRay Report ---
XR chest 1V portable CLINICAL HISTORY: weakness TECHNIQUE: Single frontal radiograph of the chest was obtained. Comparison: Comparison is made to chest one view 07/08/2020 FINDINGS: No lines and tubes are seen. The cardiomediastinal silhouette is normal. The lungs are clear. No evid ence of pleural effusion or pneumothorax. IMPRESSION: No acute chest disease. ACT 112: Negative or not required by law. Electronically signed by: Maurice Nunez M.D. 04/14/2021 5:33 PM
[2021-04-14] MEDS ORDERED: SODIUM CHLORIDE 0.9% 500 ML IV ONE (17:36)
[2021-04-14 17:37] LABS: Albumin Globulin Ratio 1.2 (0.9-2); Alkaline Phosphatase 81 U/L (45-117); Bilirubin,Total 0.8 mg/dl (0.2-1); Globulin 3.6 gm/dl (2.5-4.0); Troponin I < 0.015 ng/ml (0-0.045)
--- NOTE | 2021-04-14 17:56 | Communication Note ---
Date of Service: April 14, 2021 I participated in the patient's care and plan. For care plan, please refer to the attending physician's note. Resident Activity Tracking Resident Involvement: Resident Care Provided Care Provided: Adult ED
[2021-04-14] MEDS ORDERED: dilTIAZem HCl 5 MG/ML 5 ML VIAL IV STA (17:57)
[2021-04-14 18:03] LABS: Appearance Urine Clear (Clear); Bilirubin Urine Negative (Negative); Blood Urine Negative (Negative); Color Urine Yellow; Glucose Urine UA Negative (Negative); Ketones Urine 1+ (Negative); Leukocyte Esterase Urine Negative (Negative); Nitrite Urine Negative (Negative); Protein Urine Negative (Negative); Specific Gravity Urine 1.009 (1.000-1.030); Urobilinogen Urine Negative (Negative)
[2021-04-14 19:11] LABS: Potassium 3.4 mmol/L (3.5-5.1)
[2021-04-14 19:20] LABS: Magnesium 2.1 mg/dl (1.8-2.4)
[2021-04-14] MEDS ORDERED: POTASSIUM CHLORIDE CRTAB 20 MEQ TABCR PO STA ×2 (19:25→19:41)
[2021-04-14] MEDS ORDERED: ASPIRIN CHEW 324 MG PO STA (19:41)
[2021-04-14] MEDS: POTASSIUM CHLORIDE / WTR 10 MEQ/100 ML PLCT IV SCH ×2 (19:56→21:02)
[2021-04-14] MEDS ORDERED: dilTIAZem HCl 5 MG/ML 5 ML VIAL IV PRN (20:12)
--- NOTE | 2021-04-14 20:13 | History & Physical Report ---
Date of Service April 14, 2021 Assessment & Plan (1) Atrial flutter with rapid ventricular response: Plan: Atrial flutter with RVR/palpitations/history A. fib with RVR/hypertension- The patient will be admitted to telemetry for serial cardiac enzymes, serial EKG's, cardiac rhythm monitoring and a 2-D echocardiogram with Dopplers. The patient did convert to normal sinus rhythm after being given a total of Lopressor 5 mg IV x3, Cardizem 20 mg IV, normal saline 1000 mL bolus, Klor-Con 40 mEq p.o., KCl 10 mEq IV riders x2. Maintenance IV fluids: Normal saline plus KCl 20 mEq 100 mils per hour x1 L Change Cardizem CD 420 mg every morning to twice daily. Aspirin 81 mg every morning Consult cardiology (2) Near syncope: Plan: Secondary to A. fib/flutter with RVR (3) Palpitations: Plan: See above (4) Atrial fibrillation with rapid ventricular response: Plan: See above (5) HTN (hypertension): Plan: See above History of Present Illness Chief Complaint: The patient presents to the emergency department with complaints of palpitations when sitting down to eat dinner with his family this evening, and felt near syncopal upon standing. Primary Care Provider: NO PCP The patient is a 60-year-old male with a past medical history including atrial fibrillation with RVR and hypertension. He presents to the emergency department with symptoms as noted above. He changed work shift times within the past week, and did miss his daily Cardizem CD dose this morning. Upon arrival emergency department, patient had a rapid heart rate, and EKG found him to be in atrial flutter with RVR. Laboratory studies: Potassium 3.4, glucose 131, WBC 10.32, hemoglobin 17.6, hematocrit 48.3. From the emergency department patient received the following: Lopressor 5 mg IV x3, normal saline 500 mL boluses x2, and diltiazem 20 mg IV. Maximum recorded heart rate was 135. The ED was advised to give the patient aspirin. Medicine interventions included the following:Cardizem CD 120 mg this evening, Klor-Con 40 mEq p.o., KCl 10 mEq IV riders x2, and maintenance fluids normal saline plus KCl 20 mEq at 100 mils per hour. The patient did convert to normal sinus rhythm with heart rate 64 by the time of transfer from the ED. Allergies Allergy/AdvReac Type Severity Reaction Status Date / Time cat dander Allergy Unknown POSITIVE Verified 04/14/21 17:13 ALLERGY TEST Penicillins Allergy Unknown HAPPENED Verified 04/14/21 17:13 A CHILD ragweed pollen Allergy Unknown POSITIVE Verified 04/14/21 17:13 ALLERGY TEST Home Medications Medication Instructions Recorded Confirmed Type ascorbic acid (vitamin C) 500 mg 0 mg PO DAILY 07/08/20 04/14/21 History tablet (Vitamin C) cholecalciferol (vitamin D3) 25 25 mcg PO DAILY 07/08/20 04/14/21 History mcg (1,000 unit) capsule (Vitamin D3) multivitamin 1 tab PO DAILY 07/08/20 04/14/21 History diltiazem HCl 120 mg capsule,24 120 mg PO QAM #90 cap 07/09/20 04/14/21 Rx hr,extended release Past Med/Surg History Medical History Atrial fibrillation with rapid ventricular response HTN (hypertension) Palpitations Family History Mother Atrial fibrillation Social History Smoking Status: Never smoker Hx Alcohol Use: Yes Alcohol type: beer and wine Hx Substance Use: No Preferred Language: Maldivian Communication Ability: Effective Mortgage Assistant Required: No Beliefs That Will Affect Care: None Current Living Situation: Spouse and Family Current Living Situation Comment: lives with and daughter Other Information That Helps Us Care for You: No Feels Safe at Home: Yes Safety Concerns: Feels Safe At This Time Assistive Devices: None Review of Systems Review of Systems: The patient denies chest pain, cough, lower extremity swelling, sore throat, fevers, chills, sweats, weight change, fatigue, nausea, vomiting, diarrhea , constipation, abdominal pain, pelvic pain, blood in urine or stool, dysuria, urinary frequency or urgency, memory loss, loss of consciousness, rash, abnormal bruising or bleeding, imbalance, focal or generalized weakness, numbness or tingling in arms or legs, generalized arthralgias or myalgias, back or neck pain, or night sweats. The review of systems is otherwise negative other than for that already noted above, and at least 10 systems have been reviewed. Physical Exam Physical Exam: The patient is awake, alert and oriented 3, well developed and well nourished, normocephalic and atraumatic, lying in bed and in no acute distress. HEENT--PERRL, EOMI, mucous membranes and oropharynx dry. Neck--supple. No JVD. No bruits. Thyroid normal, trachea midline, no adenopathy. Heart--tachycardic and irregular. No murmurs, rubs or gallops. Lungs--clear bilaterally, no respiratory distress, no accessory muscle use. Abdomen--normal bowel sounds and soft. Nontender. Nondistended, no hernias or masses, no organomegaly. Extremities--no cyanosis or clubbing. No edema. Dermatologic--normal skin turgor, normal color, no abnormal lymph nodes, no rash. Neurologic--cranial nerves II through XII grossly intact. Rheumatologic--normal range of motion. Psychiatric--normal affect. Results & Data Results & Data ([facility]) Vital Signs (Past 12 Hours) Vital Signs Temp Pulse Pulse Resp BP BP Pulse Ox 04/14/21 18:40 101 H 16 93 04/14/21 18:30 116 H 22 96 04/14/21 18:25 108 H 20 115/70 96 04/14/21 18:20 105 H 22 92 04/14/21 18:10 110 H 14 94 04/14/21 18:00 138 H 17 97 04/14/21 17:50 129 H 23 93 04/14/21 17:40 127 H 26 H 04/14/21 17:39 135 H 142/96 H 04/14/21 17:30 140 H 25 H 04/14/21 17:20 140 H 21 04/14/21 17:17 142 H 130/85 04/14/21 17:10 94 H 21 04/14/21 17:06 108 H 179/91 H 04/14/21 17:00 110 H 17 04/14/21 16:50 123 H 25 H 04/14/21 16:44 102 H 19 04/14/21 16:38 98.4 F 112 H 19 96 Laboratory Results Laboratory Results WBC 10.32 K/uL (4.8-10.8) 04/14/21 16:49 RBC 5.86 M/uL (4.7-6.1) 04/14/21 16:49 Hgb 17.6 g/dL (14.0-18.0) 04/14/21 16:49 Hct 48.3 % (42-52) 04/14/21 16:49 MCV 82.4 fL (80-100) 04/14/21 16:49 MCH 30.0 pg (25-34) 04/14/21 16:49 MCHC 36.4 g/dL (32-36) H 04/14/21 16:49 RDW Std Deviation 38.3 fL (36.4-46.3) 04/14/21 16:49 RDW Coeff of Hannah 12.9 % (11.5-14.5) 04/14/21 16:49 Plt Count 231 K/uL (130-400) 04/14/21 16:49 MPV 9.0 fL (7.4-10.4) 04/14/21 16:49 Immature Gran % (Auto) 0.3 % 04/14/21 16:49 Neut % (Auto) 65.7 % 04/14/21 16:49 Lymph % (Auto) 22.4 % 04/14/21 16:49 Mcduffie % (Auto) 10.1 % 04/14/21 16:49 Eos % (Auto) 1.3 % 04/14/21 16:49 Baso % (Auto) 0.2 % 04/14/21 16:49 Neut # (Auto) 6.79 K/uL (1.4-6.5) H 04/14/21 16:49 Lymph # (Auto) 2.31 K/uL (1.2-3.4) 04/14/21 16:49 Mcduffie # (Auto) 1.04 K/uL (0.11-0.59) H 04/14/21 16:49 Eos # (Auto) 0.13 K/uL (0-0.5) 04/14/21 16:49 Baso # (Auto) 0.02 K/uL (0-0.2) 04/14/21 16:49 Immature Gran # (Auto) 0.03 K/uL (0.00-0.02) H 04/14/21 16:49 PT 9.6 Seconds (9.0-12.0) 04/14/21 16:49 INR 0.9 (0.9-1.1) 04/14/21 16:49 APTT 26.4 Seconds (21.0-31.0) 04/14/21 16:49 PTT Ratio 1.0 04/14/21 16:49 Sodium 138 mmol/L (136-145) 04/14/21 16:49 Potassium 3.4 mmol/L (3.5-5.1) L 04/14/21 18:34 Chloride 104 mmol/L (98-107) 04/14/21 16:49 Carbon Dioxide 25 mmol/L (21-32) 04/14/21 16:49 Anion Gap 9.0 (3-11) 04/14/21 16:49 BUN 21 mg/dl (7-18) H 04/14/21 16:49 Creatinine 1.16 mg/dl (0.6-1.4) 04/14/21 16:49 Est Cr Clr Drug Dosing 87.7 ml/min 04/14/21 16:49 Est GFR ( Amer) 78.9 ml/min 04/14/21 16:49 Est GFR (Non-Af Amer) 68.1 ml/min 04/14/21 16:49 BUN/Creatinine Ratio 17.8 (10-20) 04/14/21 16:49 Glucose 131 mg/dl (70-99) H 04/14/21 16:49 Calcium 9.1 mg/dl (8.5-10.1) 04/14/21 16:49 Magnesium 2.1 mg/dl (1.8-2.4) 04/14/21 18:34 Total Bilirubin 0.8 mg/dl (0.2-1) 04/14/21 16:49 AST 20 U/L (15-37) 04/14/21 18:34 ALT 35 U/L (12-78) 04/14/21 16:49 Alkaline Phosphatase 81 U/L (45-117) 04/14/21 16:49 Total Creatine Kinase 121 U/L (39-308) 04/14/21 18:34 Troponin I < 0.015 ng/ml (0-0.045) 04/14/21 23:23 Total Protein 8.0 gm/dl (6.4-8.2) 04/14/21 16:49 Albumin 4.4 gm/dl (3.4-5.0) 04/14/21 16:49 Globulin 3.6 gm/dl (2.5-4.0) 04/14/21 16:49 Albumin/Globulin Ratio 1.2 (0.9-2) 04/14/21 16:49 TSH 1.440 uIu/ml (0.300-4.500) 04/14/21 16:49 Urine Color Yellow 04/14/21 17:48 Urine Appearance Clear (Clear) 04/14/21 17:48 Urine pH 6.0 (4.5-7.5) 04/14/21 17:48 Ur Specific Ellinger 1.009 (1.000-1.030) 04/14/21 17:48 Urine Protein Negative (Negative) 04/14/21 17:48 Urine Glucose (UA) Negative (Negative) 04/14/21 17:48 Urine Ketones 1+ (Negative) H 04/14/21 17:48 Urine Blood Negative (Negative) 04/14/21 17:48 Urine Nitrite Negative (Negative) 04/14/21 17:48 Urine Bilirubin Negative (Negative) 04/14/21 17:48 Urine Urobilinogen Negative (Negative) 04/14/21 17:48 Ur Leukocyte Esterase Negative (Negative) 04/14/21 17:48 COVID-19 Eval Order Covid19 at [facility] 04/14/21 16:55 SARS-CoV-2 (PCR) NEGATIVE (Negative) 04/14/21 16:55 Impressions Chest X-Ray 04/14/21 16:46 XR chest 1V portable CLINICAL HISTORY: weakness TECHNIQUE: Single frontal radiograph of the chest was obtained. Comparison: Comparison is made to chest one view 07/08/2020 FINDINGS: No lines and tubes are seen. The cardiomediastinal silhouette is normal. The lungs are clear. No evidence of pleural effusion or pneumothorax. IMPRESSION: No acute chest disease. ACT 112: Negative or not required by law. Electronically signed by: Maurice Nunez M.D. 04/14/2021 5:33 PM Code Status & VTE Plan Code Status Full code VTE Prophylaxis Plan VTE Prophylaxis will be ordered: Yes PG Care Time/CCT Total # of Minutes Spent Total Time Spent with Patient: Total time spent is greater than 50% in coordination of care (as documented) at patient's floor/unit and/or counseling patient: Coding Level of Care Code INT OBSERVATION CARE 70M LVL 3 Diagnoses Atrial flutter with rapid ventricular response I48.92 Near syncope R55 Palpitations R00.2 Atrial fibrillation with rapid ventricular response I48.91 HTN (hypertension) I10
[2021-04-14] MEDS ORDERED: NSS + 20MEQ KCL 20 MEQ/1,000 ML BAG IV SCH (22:41)
[2021-04-14] MEDS ORDERED: ONDANSETRON INJ 2 MG/ML 2 ML VIAL IV PRN (22:41)
[2021-04-14] MEDS ORDERED: ACETAMINOPHEN 325 MG TAB PO PRN (22:41)
[2021-04-14] MEDS: dilTIAZem ER 120 MG CAPCR PO SCH (23:35)
[2021-04-15 07:43] LABS: Basophils # (auto) 0.04 K/uL (0-0.2); Basophils % (auto) 0.6 %; Eosinophils # (auto) 0.12 K/uL (0-0.5); Eosinophils % (auto) 1.8 %; Hematocrit (blood only) 45.6 % (42-52); Hemoglobin 15.6 g/dL (14.0-18.0); Immature Granulocytes # (auto) 0.03 K/uL (0.00-0.02); Immature Granulocytes % (auto) 0.5 %; Lymphocytes # (auto) 1.46 K/uL (1.2-3.4); Lymphocytes % (auto) 22.3 %; Mean Corpuscular Hemoglobin 29.5 pg (25-34); Mean Corpuscular Hgb Conc 34.2 g/dL (32-36); Mean Corpuscular Volume 86.4 fL (80-100); Monocytes # (auto) 0.59 K/uL (0.11-0.59); Neutrophils # (auto) 4.32 K/uL (1.4-6.5); Neutrophils % (auto) 65.8 %; Platelet Count 173 K/uL (130-400); RDW Coefficient of Variation 13.2 % (11.5-14.5); RDW Standard Deviation 41.4 fL (36.4-46.3); Red Blood Count 5.28 M/uL (4.7-6.1); White Blood Count 6.56 K/uL (4.8-10.8)
[2021-04-15] MEDS: dilTIAZem ER 120 MG CAPCR PO SCH (08:25)
[2021-04-15 08:28] LABS: Alanine Aminotransferase 23 U/L (12-78); Albumin Globulin Ratio 1.2 (0.9-2); Albumin Level 3.4 gm/dl (3.4-5.0); Alkaline Phosphatase 45 U/L (45-117); Aspartate Aminotransferase 14 U/L (15-37); BUN Creatinine Ratio 18.8 (10-20); Bilirubin,Total 0.8 mg/dl (0.2-1); Blood Urea Nitrogen 18 mg/dl (7-18); Calcium 8.3 mg/dl (8.5-10.1); Carbon Dioxide 24 mmol/L (21-32); Chloride 113 mmol/L (98-107); Creatinine Clr Calc Pharmacy 107.7 ml/min; Est GFR (African American) 103.1 ml/min; Est GFR (Non-African American) 88.9 ml/min; Globulin 2.9 gm/dl (2.5-4.0); Glucose 93 mg/dl (70-99); Magnesium 2.2 mg/dl (1.8-2.4); Potassium 4.1 mmol/L (3.5-5.1); Sodium 143 mmol/L (136-145); Total Protein 6.3 gm/dl (6.4-8.2); Troponin I < 0.015 ng/ml (0-0.045)
[2021-04-15] MEDS ORDERED: ASPIRIN 81 MG ECTAB PO SCH (09:00)
[2021-04-15] MEDS ORDERED: MULTIVITAMIN TAB PO SCH (09:00)
--- NOTE | 2021-04-15 10:07 | Cardiology Consultation ---
Date of Consultation April 15, 2021 Assessment & Plan (1) Atrial fibrillation with rapid ventricular response: (2) Atrial flutter with rapid ventricular response: (3) HTN (hypertension): (4) Hypokalemia: Mr. Arvizu is a 60 year old male with a history of Paroxysmal Atrial Fibrillation, Paroxysmal Atrial Flutter (both initially diagnosed in July 2020), Hypertension, and a [id number] of 1 (based on his diagnosis of hypertension) who presented to [facility] ER on 04/14/21 after developing the sudden onset tachy-palpitations secondary to A-Fib with RVR. The patient was in his usual state of health yesterday, although he did skip lunch that day and went to his 8-year-old daughter's parent teacher conference. He then took his and daughter to [employer] for an early supper. Shortly after sitting down at the table, he developed sudden onset tachy-palpitations and his pulse was very fast and erratic. Patient states he felt "a little foggy" otherwise but had no other symptoms. Patient did not have any associated symptoms, specifically no anginal type symptoms, nausea, vomiting, diaphoresis, or dyspnea. He did not have any symptoms suggestive of heart failure, stroke, or mini stroke either. He has remained hemodynamically stable throughout this hospitalization. Evaluation in the ER showed rapid A-Fib and patient was mildly hypokalemic at 3.4 mmol/L. EKG confirmed atrial fibrillation with RVR and his ventricular response rate was over 200 bpm at times. Patient was placed on a shock absorption floor layer. He received IV Lopressor 5 mg x 3 doses -- which did improve his heart rate. IV Diltiazem drip was started. Patient was admitted to observation status for further evaluation. Thus far his troponin I level is undetectable x 3 and he has remained hemodynamically stable. Patient appears to have spontaneously converted back to a normal sinus rhythm on 04/14/2021 at 2148. He has maintained a normal sinus rhythm since that time. Echocardiogram in July 2020 shows a structurally normal heart with normal LV systolic function and no significant valvular abnormalities. We discussed at length what atrial fibrillation is, the natural history of atrial arrhythmias, and we discussed various management strategies for A-Fib/A-Flutter. We discussed the risks associated with atrial fibrillation/atrial flutter. Patient verbalized understanding of these discussions. We discussed his [id number] score being 1 -- anticoagulation is optional at this point. He is aware that his hypokalemia may have contributed to this episode of A-Fib -- however his electrolytes were within normal limits when he had A-Fib in July 2020. Recommend the followin. Start Metoprolol Succinate ER 25 mg daily. 2. Continue Diltiazem CD 120 mg daily. 3. Hypokalemia has been corrected, consider starting oral Potassium Chloride on a daily basis. 4. Xarelto 20 mg daily as needed at the onset of A-Fib for the duration of the episode of A-Fib. 5. Hospital follow-up with [facility], Ish Doyle PA-C/Dr. Covington in 1 to 2 weeks. History of Present Illness Reason for Consultation: 1. Paroxysmal Atrial Fibrillation with RVR. 2. Paroxysmal Atrial Flutter. 3. Hypokalemia. Requesting Physician: Aric Antony MD Attending Physician: Carmine Covington MD History of Present Illness Mr. Arvizu is a 60 year old male with a history of Paroxysmal Atrial Fibrillation, Paroxysmal Atrial Flutter (both initially diagnosed in July 2020), and Hypertension who presented to [facility] ER yesterday afternoon with sudden onset tachy-palpitations secondary to A-Fib with RVR. The patient was in his usual state of health yesterday, although he did skip lunch that day and went to his 8-year-old daughter's parent teacher conference. He then took his and daughter to [employer] for an early supper. Shortly after sitting down at the table, he developed sudden onset tachy-palpitations and his pulse was very fast and erratic. Patient states he felt "a little foggy" otherwise but had no other symptoms. Patient denies any associated ch est pain, heaviness, tightness, pressure, or discomfort. He denies any associated shortness of breath, nausea, vomiting, diaphoresis, or exertional dyspnea. He did not have any associated syncope or near-syncope. He was therefore brought into the emergency room for further evaluation. In the ER, he was noted to be tachycardic and mildly hypokalemic at 3.4 mmol/L. EKG showed atrial fibrillation with RVR, his ventricular response rate was over 200 bpm at times. patient was placed on a shock absorption floor layer. He received IV Lopressor 5 mg x 3 doses -- which did improve his heart rate. IV Diltiazem drip was started. Patient was admitted to observation status for further evaluation. Thus far his troponin I level is undetectable x 3 and he has remained hemodynamically stable. Patient appears to have spontaneously converted back to a normal sinus rhythm on 04/14/2021 at 2148. He has maintained a normal sinus rhythm since that time. Patient has not had any symptoms suggestive of stroke or mini stroke. At the present time, he offers no complaints and is sitting comfortably in his bed. Patient is compliant with his medications and has not had any adverse side effects. Family history is significant for his mother having atrial fibrillation. Father required a pacemaker. There is no family history of premature coronary artery disease. ECHOCARDIOGRAM 07/09/20: -- Normal LV size and systolic function. -- LVEF 60% to 65%, with normal wall motion. -- Mild Concentric LVH. -- No prior study for comparison. Allergies Allergy/AdvReac Type Severity Reaction Status Date / Time cat dander Allergy Unknown POSITIVE Verified 04/14/21 17:13 ALLERGY TEST Penicillins Allergy Unknown HAPPENED Verified 04/14/21 17:13 A CHILD ragweed pollen Allergy Unknown POSITIVE Verified 04/14/21 17:13 ALLERGY TEST Home Medications Medication Instructions Recorded Confirmed Type ascorbic acid (vitamin C) 500 mg 0 mg PO DAILY 07/08/20 04/14/21 History tablet (Vitamin C) cholecalciferol (vitamin D3) 25 25 mcg PO DAILY 07/08/20 04/14/21 History mcg (1,000 unit) capsule (Vitamin D3) multivitamin 1 tab PO DAILY 07/08/20 04/14/21 History diltiazem HCl 120 mg capsule,24 120 mg PO QAM #90 cap 07/09/20 04/14/21 Rx hr,extended release Patient History Medical History Atrial fibrillation with rapid ventricular response HTN (hypertension) Palpitations Family History Mother Atrial fibrillation Social History Smoking Status: Never smoker Hx Alcohol Use: Yes Alcohol type: beer and wine Hx Substance Use: No Preferred Language: Polish Communication Ability: Effective Soda Column Operator Required: No Beliefs That Will Affect Care: None Current Living Situation: Spouse and Family Current Living Situation Comment: lives with and daughter Other Information That Helps Us Care for You: No Feels Safe at Home: Yes Safety Concerns: Feels Safe At This Time Assistive Devices: None Review of Systems Review of Systems: Negative 10 point review of systems. Physical Exam Physical Exam: GENERAL: Patient in no acute distress. HEENT: Head is atraumatic, normocephalic. EOM's intact. Facies symmetric. No perioral cyanosis. NECK: No JVD. JVP is not elevated. Carotid upstrokes are + 2 bilaterally. No bruits are noted. CHEST/LUNGS: Clear to auscultation throughout all lung delgado. No wheezes, rales, or crackles. CVS: S1 and S2 are regular without murmurs, gallops, or rubs. PMI is nonpalpable. No lifts, heaves, or thrills. No abdominal aortic or renal bruits. ABDOMINAL EXAM: Bowel sounds are present. No masses, organomegaly, or tenderness. EXTREMITIES: No clubbing or cyanosis. No edema. Intact posterior tibial and radial pulses bilaterally. NEUROLOGIC EXAM: Patient is awake, alert, and oriented. Pleasant and cooperative. Answers questions appropriately. Speech is clear. Normal movement in all 4 extremities. Gait pattern was not assessed. FUSION JUNCTURE GRINDER: -- Sinus bradycardia at times overnight, predominantly normal sinus rhythm. -- Spontaneous conversion from rapid A-Fib to normal sinus rhythm last night at 2148. EKG 04/15/21: -- Normal sinus rhythm at 68 bpm. -- Normal tracing. -- Compared to serial EKG's dated 04/14/21, NSR has replaced A-fib with RVR. Results & Data ([facility]) Vital Signs (Past 12 Hours) Vital Signs Temp Pulse Pulse Resp BP BP Pulse Ox 04/15/21 08:04 36.6 C 70 20 126/75 98 04/15/21 04:35 36.6 C 66 20 117/69 94 04/14/21 22:52 36.8 C 65 20 134/78 96 04/14/21 22:41 36.8 C 65 20 134/78 96 04/14/21 22:10 74 19 121/77 96 04/14/21 22:00 64 19 121/77 94 04/14/21 21:50 114 H 18 93 Pulse Ox 04/15/21 08:04 04/15/21 04:35 04/14/21 22:52 04/14/21 22:41 96 04/14/21 22:10 04/14/21 22:00 04/14/21 21:50 Laboratory Results Laboratory Results - last 24 hr 04/14/21 04/14/21 04/14/21 16:49 16:49 16:49 WBC 10.32 RBC 5.86 Hgb 17.6 Hct 48.3 MCV 82.4 MCH 30.0 MCHC 36.4 H RDW Std Deviation 38.3 RDW Coeff of Hannah 12.9 Plt Count 231 MPV 9.0 Immature Gran % (Auto) 0.3 Neut % (Auto) 65.7 Lymph % (Auto) 22.4 [place] % (Auto) 10.1 Eos % (Auto) 1.3 Baso % (Auto) 0.2 Neut # (Auto) 6.79 H Lymph # (Auto) 2.31 [place] # (Auto) 1.04 H Eos # (Auto) 0.13 Baso # (Auto) 0.02 Immature Gran # (Auto) 0.03 H PT 9.6 INR 0.9 APTT 26.4 PTT Ratio 1.0 Sodium 138 Potassium Chloride 104 Carbon Dioxide 25 Anion Gap 9.0 BUN 21 H Creatinine 1.16 Est Cr Clr Drug Dosing 87.7 Est GFR ( Amer) 78.9 Est GFR (Non-Af Amer) 68.1 BUN/Creatinine Ratio 17.8 Glucose 131 H Calcium 9.1 Magnesium Total Bilirubin 0.8 AST ALT 35 Alkaline Phosphatase 81 Total Creatine Kinase Troponin I < 0.015 Total Protein 8.0 Albumin 4.4 Globulin 3.6 Albumin/Globulin Ratio 1.2 TSH 1.440 Urine Color Urine Appearance Urine pH Ur Specific [place] Urine Protein Urine Glucose (UA) Urine Ketones Urine Blood Urine Nitrite Urine Bilirubin Urine Urobilinogen Ur Leukocyte Esterase COVID-19 Eval Order SARS-CoV-2 (PCR) 04/14/21 04/14/21 04/14/21 16:55 16:55 17:32 WBC RBC Hgb Hct MCV MCH MCHC RDW Std Deviation RDW Coeff of Hannah Plt Count MPV Immature Gran % (Auto) Neut % (Auto) Lymph % (Auto) [place] % (Auto) Eos % (Auto) Baso % (Auto) Neut # (Auto) Lymph # (Auto) [place] # (Auto) Eos # (Auto) Baso # (Auto) Immature Gran # (Auto) PT INR APTT PTT Ratio Sodium Potassium Cancelled Chloride Carbon Dioxide Anion Gap BUN Creatinine Est Cr Clr Drug Dosing Est GFR ( Amer) Est GFR (Non-Af Amer) BUN/Creatinine Ratio Glucose Calcium Magnesium Cancelled Total Bilirubin AST Cancelled ALT Alkaline Phosphatase Total Creatine Kinase Cancelled Troponin I Total Protein Albumin Globulin Albumin/Globulin Ratio TSH Urine Color Urine Appearance Urine pH Ur Specific [place] Urine Protein Urine Glucose (UA) Urine Ketones Urine Blood Urine Nitrite Urine Bilirubin Urine Urobilinogen Ur Leukocyte Esterase COVID-19 Eval Order Covid19 at [facility] SARS-CoV-2 (PCR) NEGATIVE 04/14/21 04/14/21 04/14/21 17:48 18:34 23:23 WBC RBC Hgb Hct MCV MCH MCHC RDW Std Deviation RDW Coeff of Hannah Plt Count MPV Immature Gran % (Auto) Neut % (Auto) Lymph % (Auto) [place] % (Auto) Eos % (Auto) Baso % (Auto) Neut # (Auto) Lymph # (Auto) [place] # (Auto) Eos # (Auto) Baso # (Auto) Immature Gran # (Auto) PT INR APTT PTT Ratio Sodium Potassium 3.4 L Chloride Carbon Dioxide Anion Gap BUN Creatinine Est Cr Clr Drug Dosing Est GFR ( Amer) Est GFR (Non-Af Amer) BUN/Creatinine Ratio Glucose Calcium Magnesium 2.1 Total Bilirubin AST 20 ALT Alkaline Phosphatase Total Creatine Kinase 121 Troponin I < 0.015 Total Protein Albumin Globulin Albumin/Globulin Ratio TSH Urine Color Yellow Urine Appearance Clear Urine pH 6.0 Ur Specific [place] 1.009 Urine Protein Negative Urine Glucose (UA) Negative Urine Ketones 1+ H Urine Blood Negative Urine Nitrite Negative Urine Bilirubin Negative Urine Urobilinogen Negative Ur Leukocyte Esterase Negative COVID-19 Eval Order SARS-CoV-2 (PCR) 04/15/21 04/15/21 07:11 07:11 WBC 6.56 RBC 5.28 Hgb 15.6 Hct 45.6 MCV 86.4 MCH 29.5 MCHC 34.2 RDW Std Deviation 41.4 RDW Coeff of Hannah 13.2 Plt Count 173 MPV 9.0 Immature Gran % (Auto) 0.5 Neut % (Auto) 65.8 Lymph % (Auto) 22.3 [place] % (Auto) 9.0 Eos % (Auto) 1.8 Baso % (Auto) 0.6 Neut # (Auto) 4.32 Lymph # (Auto) 1.46 [place] # (Auto) 0.59 Eos # (Auto) 0.12 Baso # (Auto) 0.04 Immature Gran # (Auto) 0.03 H PT INR APTT PTT Ratio Sodium 143 Potassium 4.1 D Chloride 113 H Carbon Dioxide 24 Anion Gap 6.0 BUN 18 Creatinine 0.93 Est Cr Clr Drug Dosing 107.7 Est GFR ( Amer) 103.1 Est GFR (Non-Af Amer) 88.9 BUN/Creatinine Ratio 18.8 Glucose 93 Calcium 8.3 L Magnesium 2.2 Total Bilirubin 0.8 AST 14 L ALT 23 Alkaline Phosphatase 45 Total Creatine Kinase Troponin I < 0.015 Total Protein 6.3 L D Albumin 3.4 Globulin 2.9 Albumin/Globulin Ratio 1.2 TSH Urine Color Urine Appearance Urine pH Ur Specific [place] Urine Protein Urine Glucose (UA) Urine Ketones Urine Blood Urine Nitrite Urine Bilirubin Urine Urobilinogen Ur Leukocyte Esterase COVID-19 Eval Order SARS-CoV-2 (PCR) Diagnostic Findings CXR 04/14/21: -- No lines and tubes are seen. The cardiomediastinal silhouette is normal. The lungs are clear. No evidence of pleural effusion or pneumothorax. IMPRESSION: No acute chest disease. Medications Administered Medications ascorbic acid (vitamin C) 500 mg tablet (Vitamin C) 0 mg PO DAILY 07/08/20 [History Confirmed 04/14/21] cholecalciferol (vitamin D3) 25 mcg (1,000 unit) capsule (Vitamin D3) 25 mcg PO DAILY 07/08/20 [History Confirmed 04/14/21] multivitamin 1 tab PO DAILY 07/08/20 [History Confirmed 04/14/21] diltiazem HCl 120 mg capsule,24 hr,extended release 120 mg PO QAM #90 cap 07/09/20 [Rx Confirmed 04/14/21] Home Medications Acetaminophen (Acetaminophen 325 Mg Tab) 650 mg PO Q4H PRN PRN Reason: Pain or Fever Stop: 05/14/21 22:40 Aspirin (Aspirin 81 Mg Ectab) 81 mg PO QAM [facility] Stop: 05/15/21 08:59 Last Admin: 04/15/21 09:07 Dose: 81 mg Documented by: Diltiazem HCl (Diltiazem Hcl 5 Mg/Ml 5 Ml Vial) 10 mg IV Q4H PRN PRN Reason: Tachycardia Stop: 05/14/21 20:11 Diltiazem HCl (Diltiazem Er 120 Mg Capcr) 120 mg PO BID [facility] Stop: 05/14/21 22:40 Last Admin: 04/15/21 08:25 Dose: 120 mg Documented by: Potassium Chloride/Sodium Chloride (Normal Saline W/20 Meq Kcl) 20 meq in 1,000 mls @ 80 mls/hr IV .[id number] [facility] Stop: 04/15/21 11:10 Last Admin: 04/14/21 23:35 Dose: 80 mls/hr Documented by: Multivitamins (Multivitamin Tab) 1 tab PO DAILY [facility] Stop: 05/15/21 08:59 Last Admin: 04/15/21 08:25 Dose: 1 tab Documented by: Ondansetron HCl (Ondansetron Inj 2 Mg/Ml 2 Ml Vial) 4 mg IV Q6H PRN PRN Reason: Nausea Stop: 05/14/21 22:40 PG Care Time/CCT Total # of Minutes Spent Total Time Spent with Patient: Total time spent is greater than 50% in coordination of care (as documented) at patient's floor/unit and/or counseling patient:30 Coding Level of Care Code 39166 Office/OBS Consult Lvl 4 Diagnoses Atrial fibrillation with rapid ventricular response I48.91 Atrial flutter with rapid ventricular response I48.92 HTN (hypertension) I10 Hypokalemia E87.6 Time Spent (min) 50
--- NOTE | 2021-04-15 10:36 | XCELERA ---
[id number]
--- NOTE | 2021-04-15 13:17 | Discharge Summary ---
Date of Service April 15, 2021 Admission HPI Per Admitting Provider The patient is a 60-year-old male with a past medical history including atrial fibrillation with RVR and hypertension. He presents to the emergency department with symptoms as noted above. He changed work shift times within the past week, and did miss his daily Cardizem CD dose this morning. Upon arrival emergency department, patient had a rapid heart rate, and EKG found him to be in atrial flutter with RVR. Laboratory studies: Potassium 3.4, glucose 131, WBC 10.32, hemoglobin 17.6, hematocrit 48.3. From the emergency department patient received the following: Lopressor 5 mg IV x3, normal saline 500 mL boluses x2, and diltiazem 20 mg IV. Maximum recorded heart rate was 135. The ED was advised to give the patient aspirin. Medicine interventions included the following:Cardizem CD 120 mg this evening, Klor-Con 40 mEq p.o., KCl 10 mEq IV riders x2, and maintenance fluids normal saline plus KCl 20 mEq at 100 mils per hour. The patient did convert to normal sinus rhythm with heart rate 64 by the time of transfer from the ED. Admission Exam Per Admitting Provider The patient is awake, alert and oriented 3, well developed and well nourished, normocephalic and atraumatic, lying in bed and in no acute distress. HEENT--PERRL, EOMI, mucous membranes and oropharynx dry. Neck--supple. No JVD. No bruits. Thyroid normal, trachea midline, no adenopathy. Heart--tachycardic and irregular. No murmurs, rubs or gallops. Lungs--clear bilaterally, no respiratory distress, no accessory muscle use. Abdomen--normal bowel sounds and soft. Nontender. Nondistended, no hernias or masses, no organomegaly. Extremities--no cyanosis or clubbing. No edema. Dermatologic--normal skin turgor, normal color, no abnormal lymph nodes, no rash. Neurologic--cranial nerves II through XII grossly intact. Rheumatologic--normal range of motion. Psychiatric--normal affect. Principal Diagnosis A. fib with RVR Discharge Exam General: A&Ox3. NAD. Cooperative. HEENT: Atraumatic, normocephalic. Pupils equal and responsive to light and accommodation. Vision and hearing grossly intact. Pulm: CTAB A&P. -wheezes, -rales, -rhonchi. Symmetrical chest rise. No increase work of breathing. No respiratory distress. Cardiac: RRR, -mrg. Radial pulses intact and symmetrical. Abdominal: Nontender, nondistended, soft. BS present. Discharge Data Allergies Allergy/AdvReac Type Severity Reaction Status Date / Time cat dander Allergy Unknown POSITIVE Verified 04/14/21 17:13 ALLERGY TEST Penicillins Allergy Unknown HAPPENED Verified 04/14/21 17:13 A CHILD ragweed pollen Allergy Unknown POSITIVE Verified 04/14/21 17:13 ALLERGY TEST Consultations 04/14/21 19:41 ED Decision to Admit Stat 04/14/21 22:41 Consult Cardiology Routine Hospital Course (1) Atrial flutter with rapid ventricular response: Otoniel a 6-year-old male with past medical history of hypertension and atrial flutter who presented to the hospital with weakness/presyncope and who was found to be in atrial flutter with RVR. To do as outpatient 1. Routine cardiology follow-up 2. Routine PCP follow-up, recommend outpatient spot check of potassium to ensure remains normal, supplementation if low 3. Continue to revisit risk/benefits of anticoagulation Atrial flutter with RVR/palpitations/history A. fib with RVR/hypertension Serial cardiac enzymes unremarkable, TTE with EF 60-65% and normal LV SF, no wall motion abnormality. Following ER admission he patient did convert to normal sinus rhythm after being given a total of Lopressor 5 mg IV x3, Cardizem 20 mg IV, normal saline 1000 mL bolus, Klor-Con 40 mEq p.o., KCl 10 mEq IV riders x2. -Patient had previously been on Cardizem 120 mg every morning, reports that he had missed this a day often before his symptoms began and takes this inconsistently at home Patient was seen by cardiology who recommended metoprolol succinate 25 mg daily, continuing diltiazem daily, Xarelto 20 mg daily as needed and follow-up as outpatient Patient was seen by hospice provider following cardiology consult, long discussion was had regarding the pathophysiology and risks of atrial fibrillation. Patient expressed an understanding that this places him at risk of strokes, and that cardioembolic strokes can be highly debilitating. Patient expressed an understanding of this, reported he did not wish to pursue any anticoagulation at this time. [id number] score of 1 was reviewed with patient, he expressed an understanding that this places him at a lowmoderate risk, and that he may be at slightly higher risk than this estimates due to his spontaneous conversions in and out of sinus rhythm. He reports he would continue to follow-up with his outpatient provider and cardiology for further consideration, but at this time does not wish to take any anticoagulation. Recommended aspirin 81 mg daily, is agreeable to this Consistent with cardiology recommendations also recommended patient take metoprolol as above. Patient declines to take this, reports that he has missed and has not been taking his diltiazem and will resume that and take it more diligently instead. Discussed that both diltiazem and metoprolol are rate controlling medications which can help improve symptoms, but will not lower his risk of stroke. Patient expresses an understanding of this. Patient discharged to follow-up with his primary care provider and cardiology. (2) Near syncope: Secondary to A. fib/flutter with RVR (3) Palpitations: See above (4) Atrial fibrillation with rapid ventricular response: See above (5) HTN (hypertension): Patient intermittently hypertensive to normotensive during admission Recommended to take aspirin as above Patient declined metoprolol adjunct treatment as above Recommended following up with PCP within 1 week for blood pressure recheck Total Time Total Time Spent Total Time Spent (In Minutes): 60 minites Discharge Plan Discharge Items Patient Disposition: Home - Self-Care Reason For Visit: ATRIAL FLUTTER WITH RVR Discharge Diagnosis: Atrial flutter with RVR Activity: Resume your previous activity Lifting: No more than 10 pounds Non-emergency contact: Primary Care Provider Call non-emergency contact if: you have any medication questions, your symptoms worsen, your pain is not controlled, your pain is worsening, your pain is unusual for you and your pain is concerning for you Follow-up/Referrals: Rick West MD [Resident] - PCP,NO [Primary Care Provider] - Diet: Regular Addtl Attending Provider Instructions: You are seen in the hospital for atrial fibrillation with a rapid heart rate, called A. fib with RVR. You were treated with IV rate controlling medications and clinically improved, your heart rate returned to a normal rhythm during admission. This is your second episode of atrial fibrillation. The recurrent nature of atrial fibrillation and the risk for blood clot/strokes was discussed with you during admission. It was recommended that you start an anticoagulant, either Eliquis or Xarelto, to protect you from blood clots; however on risk/benefits discussion of this you strongly preferred to defer this at this time and follow-up with your outpatient provider. You also reported that you had good rate and rhythm control with diltiazem prior to admission, and that you would miss this medication prior to your current episode. The addition of an additional medicine called metoprolol was discussed with you, due to your episode being provoked by missing diltiazem you expressed that you would not like to add an additional medicine at this time but would be more diligent in taking the diltiazem at home. It was discussed that diltiazem is a rate controlling medication, and while it can help control A. fib with rapid heart rate which can lead to the symptoms you experienced, it will not protect you from blood clots in the future. A appointment is being scheduled for you with your outpatient provider, Dr. West. You should be seen within 1 week. You should receive a call to confirm your appointment, if you do not receive a call to confirm this appointment please call his office at [phone]. Please take a daily low-dose aspirin (aspirin 81 mg) This can help prevent strokes and heart attacks. If you develop any new or worsening symptoms including fever, chills, sweats, chest pain, chest pressure, difficulty breathing, uncontrolled nausea/vomiting, rash, wheezing, passing out or nearly passing out, bleeding, black/bloody bowel movements, or other new or concerning symptoms please call your primary care physician at [phone]., or call 911 for re-evaluation in the emergency department if you are very concerned. Pending Studies at Discharge: No Stand-Alone Forms: [employer], Smoking Cessation Medications and DC Order Prescriptions: New aspirin 81 mg Tablet,Delayed Release (Dr/Ec) 81 mg PO QAM 30 Days Qty: 30 RF: 0 Continued multivitamin Tablet 1 tab PO DAILY RF: 0 ascorbic acid (vitamin C) [Vitamin C] 500 mg Tablet 0 mg PO DAILY RF: 0 cholecalciferol (vitamin D3) [Vitamin D3] 25 mcg (1,000 unit) Capsule 25 mcg PO DAILY RF: 0 diltiazem HCl 120 mg capsule,extended release 24 hr 120 mg PO QAM Qty: 90 RF: 3 Discharge Orders: Discharge Order (Routine); Ordered 04/15/21 Ordered By: Arci Antony Admission Data Admit Date/Time: 04/14/21 20:12 Attending Provider: Aric Antony Admit Provider: Mihai Machado Primary Care Provider: PCP,NO Other Providers: Mihai Machado ; Luis De La Torre Coding Level of Care Code D/C DAY MANAGEMENT >30 MINS Diagnoses Atrial flutter with rapid ventricular response I48.92 Near syncope R55 Palpitations R00.2 Atrial fibrillation with rapid ventricular response I48.91 HTN (hypertension) I10
--- NOTE | 2021-04-15 13:27 | Electrocardiogram Report ---
Test Reason : Blood Pressure : / mmHG Vent. Rate : 169 BPM Atrial Rate : 242 BPM P-R Int : 000 ms QRS Dur : 094 ms QT Int : 302 ms P-R-T Axes : 000 049 036 degrees QTc Int : 506 ms Atrial fibrillation with rapid ventricular response Nonspecific ST abnormality Abnormal ECG When compared with ECG of 08-JUL-2020 21:43, Non-specific change in ST segment in Inferior leads T wave inversion now evident in Inferior leads Confirmed by Carmine Covington ([id number]) on 04/15/2021 1:27:47 PM Referred By: REFERRED SELF Confirmed By:Carmine Covington
--- NOTE | 2021-04-15 13:28 | Electrocardiogram Report ---
Test Reason : Blood Pressure : / mmHG Vent. Rate : 169 BPM Atrial Rate : 174 BPM P-R Int : 000 ms QRS Dur : 098 ms QT Int : 290 ms P-R-T Axes : 000 041 013 degrees QTc Int : 486 ms Atrial fibrillation with rapid ventricular response Nonspecific ST and T wave abnormality Abnormal ECG When compared with ECG of 14-APR-2021 16:43, (unconfirmed) Atrial fibrillation has replaced Atrial flutter Confirmed by Carmine Covington ([id number]) on 04/15/2021 1:28:01 PM Referred By: REFERRED SELF Confirmed By:Carmine Covington
--- NOTE | 2021-04-15 13:29 | Electrocardiogram Report ---
Test Reason : Blood Pressure : / mmHG Vent. Rate : 201 BPM Atrial Rate : 182 BPM P-R Int : 000 ms QRS Dur : 084 ms QT Int : 232 ms P-R-T Axes : 000 058 051 degrees QTc Int : 424 ms Atrial fibrillation with rapid ventricular response Nonspecific ST and T wave abnormality Abnormal ECG When compared with ECG of 14-APR-2021 16:44, (unconfirmed) T wave inversion now evident in Anterolateral leads Confirmed by Carmine Covington ([id number]) on 04/15/2021 1:28:40 PM Referred By: REFERRED SELF Confirmed By:Carmine Covington
--- NOTE | 2021-04-15 13:45 | Electrocardiogram Report ---
Test Reason : Blood Pressure : / mmHG Vent. Rate : 068 BPM Atrial Rate : 068 BPM P-R Int : 160 ms QRS Dur : 102 ms QT Int : 408 ms P-R-T Axes : 049 006 051 degrees QTc Int : 433 ms Normal sinus rhythm Normal ECG When compared with ECG of 14-APR-2021 16:45, (unconfirmed) Normal sinus rhythm has replaced Atrial fibrillation Questionable change in QRS duration Confirmed by Carmine Covington ([id number]) on 04/15/2021 1:44:50 PM Referred By: REFERRED SELF Confirmed By:Carmine Covington
== END 2021-04-15 14:28 | disposition home or self-care (01) ==
LOC: ED 16:37 → 2S 16:37 → SUATTDRO 20:12 → 2S 22:19